=== PATIENT | female | born 1960 | race Hispanic/Latino ===

== ENCOUNTER 2018-12-25 18:25 | Inpatient (IN) | payer OTHER, SELFPAY ==
[~2018-12-25] VITALS: Ht 165.1 cm; Wt 91.2 kg
[~2018-12-25 18:25] MED LIST: ALBU6.7H IH; LEVO500T2 PO
[2018-12-25] MEDS ORDERED: METHYLPREDNISOLONE SOD SUCC 125MG/2ML VIAL ONE (19:18)
[2018-12-25] MEDS ORDERED: IPRATROPIUM/ALBUTEROL SULFATE 3 ML SOLUTION IH ONE (19:18)
[2018-12-25] MEDS ORDERED: ASPIRIN 81MG TAB.CHEW ONE (19:18)
[2018-12-25] MEDS ORDERED: SODIUM CHLORIDE 0.9% 1000ML 1,000 ML IV ONE (19:19)
[2018-12-25 19:42] LABS: BASOPHILS % (AUTO) 1.1 % (0.0-5.0); EOSINOPHILS % (AUTO) 10.8 % (0.0-8.0); HEMATOCRIT 46.4 % (36-48); MEAN CORPUSCULAR HEMOGLOBIN 31.3 pg (27.0-33.0); MEAN CORPUSCULAR HGB CONC 34.9 g/dL (32.0-36.0); MEAN CORPUSCULAR VOLUME 89.7 fL (79-99); MONOCYTES % (AUTO) 8.1 % (3.0-13.0); PLATELET COUNT (AUTO) 220 K/uL (130-400); RED BLOOD CELL COUNT(AUTO) 5.18 MIL/uL (4.00-5.50); RED CELL DISTRIBUTION WIDTH 13.4 % (11.0-15.5); WHITE BLOOD COUNT (AUTO) 10.6 K/uL (4.8-10.8)
[2018-12-25 19:58] LABS: BILIRUBIN,TOTAL 0.5 mg/dL (0.2-1.0); TOTAL PROTEIN, SERUM 7.3 g/dL (6.0-8.3)
[2018-12-25 20:15] LABS: B-TYPE NATRIURETIC PEPTIDE 8 pg/mL (0-100)
[2018-12-25] MEDS ORDERED: ALBUTEROL SULFATE 0.083% 2.5 MG/3 ML INH IH ONE ×2 (20:38→20:50)
[2018-12-25 20:53] LABS: APPEARANCE,URINE CLEAR (CLEAR); BILIRUBIN,URINE NEGATIVE (NEGATIVE); COLOR,URINE YELLOW (YELLOW); GLUCOSE, URINE (UA) >=1000 mg/dL (NEGATIVE); KETONES,URINE NEGATIVE (NEGATIVE); LEUKOCYTE ESTERASE ,URINE TRACE (NEGATIVE); NITRATE,URINE NEGATIVE (NEGATIVE); OCCULT BLOOD,URINE NEGATIVE (NEGATIVE); PROTEIN,URINE NEGATIVE (NEGATIVE); UROBILINOGEN,URINE 0.2 mg/dL (0.2-1.0)
[2018-12-25] MEDS ORDERED: POTASSIUM BICARB/CIT AC 25 MEQ TABLET.EFF ONE (20:59)
[2018-12-25 21:08] LABS: BACTERIA,URINE Rare /HPF (None Seen); RBC,URINE 0-1 /HPF (0-1); SQUAMOUS EPITHELIAL CELL,UR Few /HPF (0-2)
[2018-12-25 21:09] LABS: YEAST,URINE BUDDING Rare /HPF (None Seen)
[2018-12-25] MEDS ORDERED: DEXTROSE 50%-WATER 50 ML DISP.SYRIN IV PRN (23:00)
[2018-12-25] MEDS ORDERED: GLUCAGON 1MG KIT 1 MG ML IM PRN (23:00)
[2018-12-25] MEDS ORDERED: IPRATROPIUM/ALBUTEROL SULFATE 3 ML SOLUTION IH PRN (23:00)
[2018-12-26] MEDS: IPRATROPIUM/ALBUTEROL SULFATE 3 ML SOLUTION IH SCH ×5 (00:02→23:20)
[2018-12-26] MEDS: AZITHROMYCIN 500MG+NS 250ML 250 ML IV SCH ×2 (00:16→22:12)
[2018-12-26] MEDS: CEFTRIAXONE SODIUM 1 GM IVP SCH ×2 (00:16→22:12)
[2018-12-26 00:43] VITALS: BP 139/72
[2018-12-26 04:00] VITALS: BP 139/77
[2018-12-26 04:24] LABS: BASOPHILS % (AUTO) 0.4 % (0.0-5.0); EOSINOPHILS % (AUTO) 0.2 % (0.0-8.0); HEMATOCRIT 43.9 % (36-48); LYMPHOCYTES % (AUTO) 5.6 % (21.0-51.0); MEAN CORPUSCULAR HEMOGLOBIN 30.4 pg (27.0-33.0); MEAN CORPUSCULAR HGB CONC 33.9 g/dL (32.0-36.0); MEAN CORPUSCULAR VOLUME 89.8 fL (79-99); MONOCYTES % (AUTO) 0.7 % (3.0-13.0); NEUTROPHILS % (AUTO) 93.1 % (40.0-77.0); PLATELET COUNT (AUTO) 200 K/uL (130-400); RED BLOOD CELL COUNT(AUTO) 4.89 MIL/uL (4.00-5.50); RED CELL DISTRIBUTION WIDTH 13.4 % (11.0-15.5); WHITE BLOOD COUNT (AUTO) 9.1 K/uL (4.8-10.8)
[2018-12-26 04:40] LABS: ALBUMIN 3.7 g/dL (3.5-5.0); BILIRUBIN,TOTAL 0.5 mg/dL (0.2-1.0); CREATININE 0.8 mg/dL (0.5-1.5); POTASSIUM 4.6 mmol/L (3.5-5.1); TOTAL PROTEIN, SERUM 6.9 g/dL (6.0-8.3)
[2018-12-26] MEDS: METHYLPREDNISOLONE SOD SUCC 125MG/2ML VIAL IVP SCH ×3 (06:22→22:12)
[2018-12-26] MEDS: INSULIN R PO SS1 SQ SCH ×4 (06:23→21:33)
[2018-12-26 07:00] VITALS: BP 145/85
[2018-12-26] MEDS: ENOXAPARIN SODIUM 40 MG/0.4 ML SYRINGE SQ SCH (10:35)
[2018-12-26] MEDS: INSULIN GLARGINE 100 UNITS/ML 10 ML VIAL SQ SCH (10:40)
[2018-12-26 11:00] VITALS: BP 131/74
--- NOTE | 2018-12-26 12:38 | NUR ---
cm note met with patient and state resides at home with spouse, independent with adls and self care. [facility] sees dr muñoz private pay, and also gets her meds at [facility] or in [place]. [facility] dc plan is back to home. discussed with pt possibility of obtaining [employer] insurance. she states she has tried and they are quoting her about 175$per month. but at this point she feels like she should get the insurance even though it is a little high amount for her. also provided pt with list of heb meds on $4 program. also encouranged use of coupons for discounts on pump/inhalers. discussed low income clinics in the area, and provided information regarding resources. pt also has spoken to vesta for possible assist with mani coverage of hospital cost. states she will follow-up with vesta. call made to dr muñoz and updated on above. Addendum: 12/26/18 at 1244 by CRISSY CARBALLO CM Amended: Links added.
[2018-12-26 16:00] VITALS: BP 142/82
[2018-12-26 20:00] VITALS: BP 149/81
[2018-12-27 00:40] VITALS: BP 130/74
[2018-12-27] MEDS ORDERED: PRED20TA3 PO (02:45)
[2018-12-27] MEDS ORDERED: ATOR40TA71 PO (02:45)
[2018-12-27] MEDS ORDERED: INSU300I SQ (02:45)
[2018-12-27] MEDS ORDERED: CETI10TA57 PO (02:45)
[2018-12-27] MEDS ORDERED: MONT10TA24 PO (02:45)
[2018-12-27] MEDS ORDERED: GLIM4TAB3 PO (02:45)
[2018-12-27 04:00] VITALS: BP 139/73
[2018-12-27] MEDS: INSULIN R PO SS1 SQ SCH ×4 (06:42→20:57)
[2018-12-27] MEDS: INSULIN GLARGINE 100 UNITS/ML 10 ML VIAL SQ SCH (06:43)
[2018-12-27] MEDS: METHYLPREDNISOLONE SOD SUCC 125MG/2ML VIAL IVP SCH ×4 (07:00→23:17)
[2018-12-27 07:30] VITALS: BP 124/72
[2018-12-27] MEDS: IPRATROPIUM/ALBUTEROL SULFATE 3 ML SOLUTION IH SCH ×4 (07:35→23:35)
[2018-12-27] MEDS: PSEUDOEPHEDRINE HCL 30 MG TAB PO SCH ×3 (10:43→20:49)
[2018-12-27] MEDS: ENOXAPARIN SODIUM 40 MG/0.4 ML SYRINGE SQ SCH (10:49)
[2018-12-27 11:03] VITALS: BP 128/75
[2018-12-27 16:27] VITALS: BP 136/85
[2018-12-27 19:59] VITALS: BP 135/77
[2018-12-27] MEDS: AZITHROMYCIN 500MG+NS 250ML 250 ML IV SCH (20:49)
[2018-12-27] MEDS: CEFTRIAXONE SODIUM 1 GM IVP SCH (23:17)
[2018-12-28] VITALS (7 sets, daily range): BP systolic 113–143; BP diastolic 63–85
[2018-12-28] MEDS: IPRATROPIUM/ALBUTEROL SULFATE 3 ML SOLUTION IH SCH ×4 (06:29→23:11)
--- NOTE | 2018-12-28 07:00 | NUR ---
MD ROUNDS DR. MIMS CAME TO SEE PATIENT. ASSESSED HER. PATIENT STATED SHE FEELS IMPROVED BUT WITH HEADACHE. HE SAID HE WILL KEEP ONE MORE DAY AND GAVE ORDERS TO CHANGE SOLUMEDROL TO 80MG IV BID. PLAN TO DISCHARGE TOMORROW.
[2018-12-28] MEDS: METHYLPREDNISOLONE SOD SUCC 125MG/2ML VIAL IVP SCH ×3 (07:01→22:24)
[2018-12-28] MEDS: INSULIN R PO SS1 SQ SCH ×4 (07:06→22:35)
[2018-12-28] MEDS: INSULIN GLARGINE 100 UNITS/ML 10 ML VIAL SQ SCH (07:07)
--- NOTE | 2018-12-28 07:10 | NUR ---
NOTE PATIENT REPORTS HAVING HEADACHE. NO PAIN MEDICATION NOTED UPON REVIEW OF EMAR. TRIED CALLING DR. MIMS TO ASK FOR PAIN MEDICATION ORDERS, BUT WAS UNABLE TO SPEAK WITH HIM. WILL TRY AGAIN LATER.
[2018-12-28] MEDS: ENOXAPARIN SODIUM 40 MG/0.4 ML SYRINGE SQ SCH (10:37)
[2018-12-28] MEDS: PSEUDOEPHEDRINE HCL 30 MG TAB PO SCH ×3 (10:37→22:24)
[2018-12-28] MEDS: AZITHROMYCIN 500MG+NS 250ML 250 ML IV SCH (22:23)
[2018-12-28] MEDS: CEFTRIAXONE SODIUM 1 GM IVP SCH (22:24)
[2018-12-29 04:00] VITALS: BP 130/70
[2018-12-29] MEDS: IPRATROPIUM/ALBUTEROL SULFATE 3 ML SOLUTION IH SCH ×2 (06:01→11:02)
[2018-12-29] MEDS: INSULIN R PO SS1 SQ SCH ×2 (06:04→11:30)
[2018-12-29] MEDS: INSULIN GLARGINE 100 UNITS/ML 10 ML VIAL SQ SCH (06:43)
--- NOTE | 2018-12-29 07:06 | NUR ---
ROUNDS DR. MIMS HERE TO SEE PATIENT. PATIENT DID INFORMED HIM OF RIGHT EAR DISCOMFORT THAT HAS BEEN CONTINUING ON AND OFF SINCE BEFORE SHE GOT ADMITTERED SHE SAYS. BUT OVER ALL FEELS BETTER TODAY. RECEIVED ORDERS FOR PATIENT TO BE DISCHARGED HOME TODAY. FOLLOW UP AT NEXT WEEK.
[2018-12-29 07:30] VITALS: BP 136/68
[2018-12-29] MEDS: ENOXAPARIN SODIUM 40 MG/0.4 ML SYRINGE SQ SCH (10:20)
[2018-12-29] MEDS: PSEUDOEPHEDRINE HCL 30 MG TAB PO SCH (10:20)
[2018-12-29] MEDS: METHYLPREDNISOLONE SOD SUCC 125MG/2ML VIAL IVP SCH (10:21)
[2018-12-29 11:00] VITALS: BP 137/83
== END 2018-12-29 13:37 | disposition home or self-care (01) | DRG 203 ==
LOC: EDH 18:25 → EDHIP 18:26 → OBSVTOIN 18:26 → EDHIP 22:30 → UNDOADMOB 22:30 → 4CH 12-26 00:16
PROVIDERS: ADMIT Internal Medicine; ATTEND Internal Medicine
DX: J45.901 Unspecified asthma with (acute) exacerbation (principal); I10 Essential (primary) hypertension; E78.00 Pure hypercholesterolemia, unspecified; E11.9 Type 2 diabetes mellitus without complications
CPT/HCPCS: 36415; 71045; 80053; 81001; 82550; 82948; 83880; 84484; 85025; 93005; 94640; 94664; 99291; G0378; J0456; J0696; J1650; J1815; J2930; J7030

== ENCOUNTER 2024-08-12 17:36 | Inpatient (IN) | payer SELFPAY ==
[~2024-08-12] VITALS: Ht 162.6 cm; Wt 66.8 kg
[~2024-08-12 17:36] MED LIST changes: -ALBU6.7H IH; +ATOR40TA71 PO; +CETI10TA57 PO; +GLIM4TAB36 PO; +INSU300I SQ; -LEVO500T2 PO; +MONT-39 PO; +PRED20TA3 PO
[2024-08-12 18:10] LABS: BASOPHILS # (AUTO) 0.05 K/uL (0.00-0.20); BASOPHILS % (AUTO) 0.3 % (0.0-5.0); EOSINOPHILS # (AUTO) 0.04 K/uL (0.00-0.70); EOSINOPHILS % (AUTO) 0.2 % (0.0-8.0); HEMATOCRIT 37.3 % (36-48); IMMATURE GRANULOCYTE ABSOLUTE 0.12 K/uL (0-1); LYMPHOCYTES # (AUTO) 0.6 K/uL (1.0-4.8); MEAN CORPUSCULAR HEMOGLOBIN 30.3 pg (27.0-33.0); MEAN CORPUSCULAR HGB CONC 35.4 g/dL (32.0-36.0); MEAN CORPUSCULAR VOLUME 85.6 fL (79-99); MONOCYTES # (AUTO) 1.3 K/uL (0.1-1.0); MONOCYTES % (AUTO) 6.9 % (3.0-13.0); NEUTROPHILS # (AUTO) 17.2 K/uL (1.8-7.7); PLATELET COUNT (AUTO) 156 K/uL (130-400); RED BLOOD CELL COUNT(AUTO) 4.36 MIL/uL (4.00-5.50); RED CELL DISTRIBUTION WIDTH 12.5 % (11.0-15.5); WHITE BLOOD COUNT (AUTO) 19.4 K/uL (4.8-10.8)
[2024-08-12] MEDS: acetaMINOPHEN 500 MG TABLET PO ONE (18:10)
[2024-08-12 18:34] LABS: BAND NEUTROPHILS % (MANUAL) 12 % (0-2); LYMPHOCYTES % (MANUAL) 1 % (22-44); MAN.DIFF COMMENT-IMPRESSION MANUAL DIFFERENTIAL; METAMYELOCYTES % 1 % (0-0); MONOCYTES % (MANUAL) 8 % (2-9); POTASSIUM 3.2 mmol/L (3.5-5.1); SEGMENTED NEUTROPHILS % 78 % (40-70); TOTAL CELLS COUNTED 100
[2024-08-12 18:34] LABS: SARS-CoV-2, RNA, NAAT NEGATIVE SARS CoV-2 (NEGATIVE)
[2024-08-12 18:35] LABS: PLATELET MORPHOLOGY COMMENT ADEQUATE; WBC MORPHOLOGY IMMATURE GRAN 1+
[2024-08-12 18:39] LABS: INFLUENZA TYPE A Negative For Type A (NEGATIVE); INFLUENZA TYPE B Negative For Type B (NEGATIVE)
[2024-08-12 18:41] LABS: B-TYPE NATRIURETIC PEPTIDE 52 pg/mL (0-100)
[2024-08-12 18:43] LABS: MAGNESIUM 1.7 mg/dL (1.80-2.40)
[2024-08-12] MEDS: cefTRIAXone 1G VIAL IVPB ONE (18:43)
--- NOTE | 2024-08-12 20:40 | EKG ---
[facility] Test Date: 2024-08-12 Test Time: 17:52:30 Pat Name: XOCHITL CORCORAN Department: [facility] Room: 430 Gender: F Tonsorial Artist: [id number] : 1960 Requested By: TRACI TREJO Order Number: [id number] Reading MD: Carrington Walden Measurements Intervals [place] Rate: 115 P: 71 DC: 128 QRS: 50 QRSD: 87 T: -3 QT: 297 QTc: 410 Interpretive Statements Sinus tachycardia Ventricular premature complex Compared to ECG 12/25/2018 18:53:51 Ventricular premature complex(es) now present Sinus rhythm no longer present ST (T wave) deviation no longer present Electronically Signed On 08-13-2024 12:11:45 GASOLINE PUMP MECHANIC by Carrington Walden Please click the below link to view image of tracing.
[2024-08-12] MEDS: AZITHROMYCIN 500MG+NS 250ML 250 ML IVPB SCH (20:50)
--- NOTE | 2024-08-12 20:55 | ERN ---
General Chief Complaint: Chest Pain Stated Complaint: CHEST PAIN Time Seen by MD: 17:39 Time Seen by Midlevel: 17:39 Source: patient History of Present Illness Initial Comments Patient is a 64-year-old female with a past medical history of asthma, hyperlipidemia, hypertension, and type 2 diabetes presenting to the emergency department with cough, congestion, and right-sided chest pain. The patient was diagnosed with influenza three days ago and started on Tamiflu however over the last couple of days she has only worsened. She reports an increase in shortness for breath now. Allergies: Coded Allergies: No Known Drug Allergies (Verified Allergy, Unknown, 01/15/16) Home Meds Reported Medications Losartan Potassium (Losartan Potassium) 50 Mg Tablet, 1 TAB PO DAILY for 30 Days, #30 TAB 0 Refills 08/13/24 Pantoprazole Sodium (Pantoprazole Sodium) 40 Mg Tablet.dr, 40 MG PO DAILY, TAB 08/13/24 Montelukast Sodium (Montelukast Sodium) 10 Mg Tablet, 1 TAB PO DAILY for 30 Days, #30 TAB 0 Refills 08/13/24 Metformin HCl (Metformin HCl ER) 500 Mg Tab.er.24h, 1 TAB PO DAILY for 30 Days, #30 TAB 0 Refills 08/13/24 Atorvastatin Calcium (Atorvastatin Calcium) 20 Mg Tablet, 1 TAB PO DAILY for 30 Days, #30 TAB 0 Refills 08/13/24 Discontinued Reported Medications Insulin Glargine,Hum.rec.anlog (Luh Jon) 300 Unit/1 Ml Insuln.pen, 15 UNIT SQ DAILY, SYRINGE PT INJCTS BETWEEN 15 OR 30 UNITS DEPENDING ON HER BLOOD SUGAR CHECK 12/27/18 Atorvastatin Calcium (Atorvastatin Calcium) 40 Mg Tablet, 40 MG PO DAILY, TAB 12/27/18 Cetirizine HCl (Cetirizine HCl) 10 Mg Tablet, 10 MG PO HS, TAB 12/27/18 Montelukast Sodium (Montelukast Sodium) 10 Mg Tablet, 10 MG PO DAILY, TAB 12/27/18 Prednisone (Prednisone) 20 Mg Tablet, 20 MG PO DAILY, TAB 12/27/18 Glimepiride (Glimepiride) 4 Mg Tablet, 4 MG PO BID, TAB 12/27/18 Past Medical History Past Medical History: Asthma, Diabetes-Type II, High Cholesterol, Hypertension Past Surgical History: Hysterectomy ROS Dictation CONSTITUTIONAL: Negative except for HPI HEAD/FACE: Negative except for HPI EENT: Negative except for HPI RESPIRATORY: Negative except for HPI GASTROINTESTINAL/ABDOMINAL: Negative except for HPI GENITOURINARY: Negative except for HPI MUSCULOSKELETAL: Negative except for HPI INTEGUMENTARY: Negative except for HPI NEUROLOGICAL/PSYCH: Negative except for HPI HEMATOLOGIC/LYMPHATIC: Negative except for HPI All Systems Negative, Except as noted above. 13 point review of systems assessed and all negative except for above. Physical Exam Physical Exam Dictation Vital Signs reviewed General Appearance: Alert, oriented x 3, no acute distress, febrile Head and Face: non-traumatic. Eyes: PERRL, pink conjunctivas, eyelid no trauma, anterior chamber with arcus senilis. Ears: Pinnas intact and no signs of trauma or erythema ear canals clear and no discharge TM no erythema Nose: No discharge, no bleeding. Oropharynx: Mouth normal, tongue pink, pharynx clear,no erythema, tonsils no exudates, no abscesses noted, mucous membrane moist Neck: Supple, non-tender, no thyromegaly, no masses, no JVD, no bruits Breast:Deferred Chest:No tenderness, no crepitus, no paradoxical movement, no retractions Lungs: Symmetric breath sounds bilaterally, rhonchi to the right upper lobe, Heart: tachycardic regular rhythm, no murmur, no gallops Vascular: no peripheral edema, Abdomen: Soft, positive bowel sounds, nondistended, no guarding, nontender, no rebound, no masses no hepatomegaly, no splenomegaly, no Drummond's sign, no hernias. Rectal: Deferred Genital: Deferred Neurological: Normal speech, motor function intact, sensory function intact Musculoskeletal: Neck nontender, full range of motion, back nontender, full range of motion, Extremities: nontender, full range of motion Skin: Color pink, dry, no turgor, no rash, no lacerations, no abrasions, no contusions. Lymphatic: Deferred Results Laboratory and Microbiology Lab and Micro Result Labs Reviewed?: Yes MDM MDM: Differential diagnosis: Pneumonia, pulmonary edema, pleural effusion, viral illness, sepsis Rationale: Tests considered and ordered secondary to shared decision making i nclude: Previous outside records reviewed: Old ER visits. Risk of complication and/or morbidity or mortality of patient management: None Medications-Per medication reconciliation Need for hospitalization: Patient does meet criteria for hospitalization. Need for emergency major/minor surgery: No There are no social concerns with this patient. Prescription drug management Prescriptions will include symptomatic care Patient's prior external medical records from other ER visits were reviewed by me as indicated. Prior testing and results from previous visits were reviewed. Prior tests were taken into account with medical decision making and resource utilization, independent historian/historians were used to obtain complete medical history. I independently interpreted the test that were performed, results were reviewed by me and considered findings on radiology if ordered. Medical management and examination interpretation discussions were had by me with other qualified healthcare professionals as indicated for the patient's care. ED Course [facility] [address] [place] [address] IMAGING REPORT Signed PATIENT: XOCHITL CORCORAN MR#: [id number] : 1960 SEX: F AGE: 64 LOCATION: [facility] ORDER 44 STATUS: [facility] ER REPORT#: [id number] SERVICE 43 REASON: sob ORDERING PHYSICIAN: TRACI TREJO PROCEDURE: CXR1VW - CHEST 1VW CHEST 1VW CLINICAL HISTORY: sob COMPARISON: 12/23/2018 TECHNIQUE: Single view of the chest was obtained. FINDINGS: There is a large infiltrate in the right lung. The cardiac size and mediastinum are unremarkable. The bony structures are within normal limits. IMPRESSION: Large right lung infiltrate. DICTATED BY: NATALIA ROLLINS DO DATE: 08/12/242114 ELECTRONICALLY SIGNED BY: NATALIA ROLLINS DO DATE: 08/12/242133 DX & DISP Disposition: Inpatient Decision to Admit Date: Aug 12, 2024 Departure Impression: Primary Impression: Sepsis Additional Impressions: Community acquired pneumonia, Leukocytosis Condition: Stable Referrals: [facility] S[facility] LITERATURE PROFESSOR (PCP) I have reviewed the case, and I agree with, Diagnosis and Plan I performed the substantive portion of the visit. I have reviewed and personall y made and approve the management plan that is documented in the note by myself or the DANITZA. I acknowledge for responsibility for the patient's management plan. TRACI TREJO Aug 12, 2024 20:55
[2024-08-12] MEDS ORDERED: PoTASSium chloRIDE 20MEQ/100ML 100 ML IV PRN (21:30)
[2024-08-12] MEDS ORDERED: hydrALAZine 20MG/ML VIAL IV PRN (21:30)
[2024-08-12] MEDS ORDERED: morPHINE 2 MG SYG IVP PRN (21:30)
[2024-08-12] MEDS ORDERED: ondanSETRON 4MG INJ IV PRN (21:30)
--- NOTE | 2024-08-12 21:34 | HMCIMG ---
CHEST 1VW CLINICAL HISTORY: sob COMPARISON: 12/23/2018 TECHNIQUE: Single view of the chest was obtained. FINDINGS: There is a large infiltrate in the right lung. The cardiac size and mediastinum are unremarkable. The bony structures are within normal limits. IMPRESSION: Large right lung infiltrate.
--- NOTE | 2024-08-12 21:35 | HP ---
History of Present Illness Reason for Visit: cough History of Present Illness Ms. Wellington is a 64-year-old female that was seen and examined today on 08/12/2024. Patient is a good historian and personal health. Patient states she came to the emergency department with a chief complaint of cough. Onset is chronic. Cough has been worse for about one week. Location is to lungs. Duration is on and off. Character is described as nonproductive. Symptoms are aggravated with physical activity. There was no alleviating factors. Patient states that she feels like her asthma is getting worse. Patient also reports associated chest pain. Today in the emergency department WBCs 19.4, left shift neutrophils 89.0%, potassium 3.2, magnesium 1.7, glucose 227 mg/dL, influenza screen is negative, COVID is negative, chest x-ray shows right lower lobe infiltrates although radiology report is pending. Room physician recommended patient be admitted with a diagnosis of pneumonia. Past Medical History Patient History: Patient reports no known family medical history. ADDITIONAL PAST MEDICAL HISTORY: [] Diabetes mellitius type2, hypertension, hyperlipidemia, asthma SOCIAL HISTORY: [Negative for smoking, alcohol use, drug use. Patient has poor access to health care due to lack of health insurance. Patient lives with the Rashid Wellington. Patient is typically independent of all her ADLs. Patient denies difficulty paying her bills. Patient works at a local [employer] facility.] SURGICAL HISTORY: [Hysterectomy, section x1] Review of Systems General: No Fever, No Chills, No Night Sweats, No Fatigue, No Malaise, No Appetite, No Other HEENT: No Head Aches, No Visual Changes, No Eye Pain, No Ear Pain, No Dysphasia, No Sinus Congestion, No Post Nasal Drip, No Sore Throat, No Other Pulmonary: No Dyspnea; Cough; No Pleuritic Chest Pain, No Other Cardiovascular: Chest Pain; No: Palpitations, Orthopnea, Paroxysmal Noc. Dyspnea, Edema, Lt Headedness, Other Gastrointestinal: No: Nausea, Vomiting, Abdominal Pain, Diarrhea, Constipation, Melena, Hematochezia, Other Genitourinary: No Dysuria, No Frequency, No Incontinence, No Hematuria, No Retention, No Other Musculoskeletal: No: other, neck pain, shoulder pain, arm pain, back pain, hand pain, leg pain, foot pain Skin: No Urticaria, No Rash, No Other Neurological: No: Weakness, Numbness, Incoordination, Change in speech, Confusion, Seizures, Other Allergies: Coded Allergies: No Known Drug Allergies (Verified Allergy, Unknown, 01/15/16) Scheduled Atorvastatin Calcium (Atorvastatin Calcium), 40 MG PO DAILY, (Reported) Cetirizine HCl (Cetirizine HCl), 10 MG PO HS, (Reported) Glimepiride (Glimepiride), 4 MG PO BID, (Reported) Insulin Glargine,Hum.rec.anlog (Toujeo Solostar), 15 UNIT SQ DAILY, (Reported) Montelukast Sodium (Montelukast Sodium), 10 MG PO DAILY, (Reported) Prednisone (Prednisone), 20 MG PO DAILY, (Reported) Exam Vital Signs Vital Signs Date Time Temp Pulse Resp B/P (MAP) Pulse Ox O2 Delivery O2 Flow Rate FiO2 08/12/24 19:49 99.0 99 22 113/49 94 Room Air* 0 21 General Appearance: Alert, Oriented X3, Cooperative, mild distress HEENT: Atraumatic, EOMI Respiratory: Other (Rhonchi to right lower lobe) Cardiovascular: Normal S1, Normal S2 Abdominal: Normal bowel sounds, Soft Extremities: No edema Skin: No significant lesion Neuro: Normal speech, Strength at 5/5 X4 ext, Sensation intact, Cranial nerves 3-12 NL Psych/Mental Status: Mood NL, Thoughts/Content NL Assessment/Plan ASSESSMENT: [ Pneumonia, POA Uncontrolled Diabetes mellitius type2, POA Hypokalemia, POA Hypomagnesemia, POA Leukocytosis, POA Asthma Hyperlipidemia] PLAN: [ Admit patient to medical floor as inpatient status. DuoNebs every 6 hours. Respiratory culture Empiric antibiotic therapy with doxycycline and Rocephin Supportive treatment with guaifenesin, Tylenol Supplemental oxygen to maintain O2 saturation greater 92%. Order urinalysis, follow up with the results Reviewed lactic acid, unremarkable Reviewed procalcitonin, mildly elevated 0.98 Check blood culture, follow up with the results Check hemoglobin A1c in a.m. Glucometer checks a.c. and HS 1800 ADA diet Humulin R sliding scale Replace potassium per hospital protocol Replace magnesium per hospital protocol Resuming home medications once they have been reconciled GI prophylaxis, famotidine DVT prophylaxis, Lovenox ADVANCED CARE PLANNING 1. Which of the following were discussed? Hospice Care - Yes Therapeutic options - Yes Advance Directives - Yes- patient states she does not have any advance directives in place at this time, however her has been can make decisions for her if she becomes unable. Other discussions - patient wishes to remain a full code at this time 2. Discussed with who? Patient 3. Voluntary nature of this service was explained to the patient? Yes 4. Amount of time spent - ___ 16 minutes ____ 5. Reviewed by Physician? (if this service was performed by NPP) Yes This document was generated in part using voice recognition software, occasional wrong word or sound alike substitutions may have occurred due to the inherent limitations of voice recognition software. Read the chart carefully and recognize using context, where the substitutions have occurred. Although every effort was made to edit the content, carpet inspector and typing errors may occur ATTESTATION BY PHYSICIAN I have seen and examined the patient. I reviewed the documentation, medical decision making, and treatment plan as noted by the mid-level provider above. I agree with the findings and plan of care. [facility] Aug 12, 2024 21:35
[2024-08-12 22:10] LABS: APPEARANCE,URINE CLOUDY (CLEAR); BILIRUBIN,URINE NEGATIVE (NEGATIVE); COLOR,URINE YELLOW (YELLOW); GLUCOSE, URINE (UA) 200 mg/dL (NEGATIVE); KETONES,URINE NEGATIVE (NEGATIVE); LEUKOCYTE ESTERASE ,URINE NEGATIVE Leu/uL (NEGATIVE); NITRATE,URINE NEGATIVE (NEGATIVE); OCCULT BLOOD,URINE SMALL (NEGATIVE); PH,URINE 5.5 (5.0-8.0); PROTEIN,URINE 70 mg/dL (NEGATIVE)
[2024-08-12 22:23] LABS: ADD UA MICROSCOPIC YES
[2024-08-12 22:25] LABS: MUCUS,URINE RARE LPF (None Seen); RBC,URINE 0-1 /HPF (0-1); SQUAMOUS EPITHELIAL CELL,UR RARE /HPF (0-2)
[2024-08-12] MEDS: IpraTROPium/alBUTERol SULFATE 3 ML SOLUTION IH ONE (23:16)
[2024-08-12] MEDS: IpraTROPium/alBUTERol SULFATE 3 ML SOLUTION IH SCH (23:16)
[2024-08-12] MEDS: SODIUM CHLORIDE 3% FOR INHALATION 4 ML/AMP VIAL.NEB IH ONE (23:16)
[2024-08-12 23:18] VITALS: PULSE 93; RESP 18
[2024-08-13] VITALS (12 sets, daily range): BP systolic 97–129; BP diastolic 52–76; PULSE 78–122; RESP 18–22; TEMP 98–100.1; O2SAT 93–98
[2024-08-13] MEDS: PoTASSium chloRIDE 20MEQ ER 20 MEQ ERTAB PO PRN (00:19)
[2024-08-13] MEDS: MAGNESIUM 2GM PREMIX 50ML 50 ML IV PRN (01:15)
[2024-08-13] MEDS ORDERED: MONT-39 PO (03:19)
[2024-08-13] MEDS ORDERED: METF-910 PO (03:19)
[2024-08-13] MEDS ORDERED: LOSA50TA64 PO (03:19)
[2024-08-13] MEDS ORDERED: PANT40TA54 PO (03:19)
[2024-08-13] MEDS ORDERED: ATOR20TA65 PO (03:19)
[2024-08-13] MEDS: acetaMINOPHEN 325 MG TAB PO PRN (05:33)
[2024-08-13 06:03] LABS: BASOPHILS # (AUTO) 0.03 K/uL (0.00-0.20); BASOPHILS % (AUTO) 0.2 % (0.0-5.0); EOSINOPHILS # (AUTO) 0.05 K/uL (0.00-0.70); EOSINOPHILS % (AUTO) 0.3 % (0.0-8.0); HEMATOCRIT 32.2 % (36-48); IMMATURE GRANULOCYTE ABSOLUTE 0.11 K/uL (0-1); LYMPHOCYTES # (AUTO) 0.9 K/uL (1.0-4.8); MEAN CORPUSCULAR HEMOGLOBIN 30.3 pg (27.0-33.0); MEAN CORPUSCULAR HGB CONC 35.1 g/dL (32.0-36.0); MEAN CORPUSCULAR VOLUME 86.3 fL (79-99); MONOCYTES # (AUTO) 1.7 K/uL (0.1-1.0); MONOCYTES % (AUTO) 9.3 % (3.0-13.0); NEUTROPHILS # (AUTO) 15.1 K/uL (1.8-7.7); NEUTROPHILS % (AUTO) 84.6 % (40.0-77.0); PLATELET COUNT (AUTO) 159 K/uL (130-400); RED BLOOD CELL COUNT(AUTO) 3.73 MIL/uL (4.00-5.50); RED CELL DISTRIBUTION WIDTH 12.7 % (11.0-15.5); WHITE BLOOD COUNT (AUTO) 17.8 K/uL (4.8-10.8)
[2024-08-13 06:22] LABS: CREATININE 0.7 mg/dL (0.5-1.0); MAGNESIUM 2.3 mg/dL (1.80-2.40); PHOSPHORUS 2.1 mg/dL (2.5-4.9); POTASSIUM 3.3 mmol/L (3.5-5.1)
[2024-08-13 06:25] LABS: HEMOGLOBIN A1C 6.1 % (4.0-6.0)
[2024-08-13] MEDS: INSULIN humuLIN R 100 UNIT/ML 3ML SQ SCH (06:29)
[2024-08-13] MEDS: SODIUM CHLORIDE 3% FOR INHALATION 4 ML/AMP VIAL.NEB IH ONE ×2 (07:01→11:09)
[2024-08-13] MEDS: ENOXAPARIN SODIUM 40 MG/0.4 ML SYRINGE SQ SCH (10:51)
[2024-08-13] MEDS: FAMOTIDINE 20MG TAB PO SCH (10:51)
[2024-08-13] MEDS: DOXYCYCLINE 100MG+NS 250ML 250 ML IV SCH (10:51)
[2024-08-13] MEDS: PoTASSium chl 10% ELIXIR 20MEQ 20 MEQ/15 ML UDCUP PO PRN (10:53)
--- NOTE | 2024-08-13 11:09 | PN ---
[facility] PROGRESS NOTE Date of Service: Aug 13, 2024 Time of Service: 11:00 SUBJECTIVE: This is a 64-year-old female, presented to the emergency room with a chief complaint of cough productive of brownish phlegm with the associated shortness of breath. Chest x-ray showed large right lung infiltrate. 08/13 patient is seen and examined at bedside, case discussed with the RN, no acute events overnight. During my visit the patient comfortable in bed, alert oriented x3, following commands, admits cough productive brownish phlegm, right- sided pleuritic chest pain. BP 97/53, spiked fever last night, she is saturating 96% on 2 L via nasal cannula. WBC remains elevated at 17.8. Potassium 3.3. Hemoglobin A1c 6.1. Procalcitonin mildly elevated 0.98. Appearance of the UA cloudy. Small occult blood. Serology to include influenza type a and B negative. SARS antigen negative. Chest x-ray shows large right lung infiltrate. REVIEW OF SYSTEMS CONSTITUTIONAL: Denies fevers, chills, or night sweats. No unintentional weight loss reported. NEUROLOGICAL: Denies headache, amaurosis fugax, motor weakness, sensory deficit, vertigo/spinning sensation, gait abnormalities, or tremors. ENT: No hearing loss, otalgia, otorrhea, rhinitis, rhinorrhea, hoarseness, or sore throat. CARDIOVASCULAR: Denies any exertional angina, dyspnea on exertion, orthopnea, paroxysmal nocturnal dyspnea, palpitations, life-threatening arrhythmias, claudication. PULMONARY: Denies any shortness of breath, cough, phlegm/sputum, hemoptysis, pleuritic chest pain. SLEEP: Denies morning headaches, daytime somnolence or napping. Denies difficul ty falling asleep, staying asleep, waking from sleep. Denies knowledge of snoring. GASTROINTESTINAL: Denies any type of dysphagia to either liquids or solids. Denies nausea, vomiting, pyrosis, early satiety, abdominal pain, diarrhea, constipation, or changes in stool consistency or caliber. Denies coffee-ground emesis, hematemesis, hematochezia, or melanotic stools. GENITOURINARY: Denies frequency, urgency, nocturia, hematuria or incontinence (Storage/Irritative symptoms.) Low urinary stream, straining to void, urinary intermittency or hesitancy, splitting of the voiding stream, terminal dribbling. ENDOCRINOLOGIC: Denies polyuria, polydipsia, polyphagia or heat/cold intole rances. HEMATOLOGIC: Denies thrombophilia/previous clots, or coagulopathy/bleeding disorders. ONCOLOGIC: Denies personal history of malignancy. DERMATOLOGIC: Denies rashes or pruritus. PSYCHIATRIC: Denies any suicidal or homicidal ideation. Denies hallucinations. PHYSICAL EXAM GENERAL APPEARANCE: The patient is awake, alert, and oriented, in no acute cardiopulmonary distress. NEUROLOGICAL: Cranial nerves II-XII grossly intact. Motor is 5/5 in bilateral upper and lower extremities proximal to distal. No sensory deficits. HEENT: Face is symmetric. Pupils are equal and reactive. Extraocular movements are intact. NECK: Supple. No JVD. No thyromegaly. No submental, submandibular, pre- /postauricular, occipital or supraclavicular lymphadenopathy. CHEST: Normal chest expansion. No Telemetry. LUNGS: Absence of any rales, rhonchi or any wheezing. CARDIOVASCULAR: Regular. S1 and S2 normal. No appreciable rubs, murmurs or gallops. ABDOMEN: Soft, nontender, and nondistended. There is no rebound, voluntary guarding, or rigidity. : Deferred. No Rincon. EXTREMITIES: Non-edematous and not cyanotic. No clubbing. Good capillary refill. SKIN: No skin breakdown. Vital Signs (last 8hr) Date Time Temp Pulse Resp B/P (MAP) Pulse Ox O2 Delivery O2 Flow Rate FiO2 08/13/24 08:00 98.2 90 20 97/53 96 Nasal Cannula 2.0 08/13/24 07:02 90 18 08/13/24 04:10 93 Nasal Cannula* 2 28 08/13/24 04:00 99.9 99 18 105/52 99 Nasal Cannula LABS: Laboratory: Test 08/13/24 05:56 08/13/24 05:27 08/12/24 21:54 08/12/24 18:15 Range/Units White Blood Count 17.8 H 4.8-10.8 K/uL Red Blood Count 3.73 L 4.00-5.50 MIL/uL Hemoglobin 11.3 L 12.0-16.0 g/dL Hematocrit 32.2 L 36-48 % Mean Corpuscular Volume 86.3 79-99 fL Mean Corpuscular Hemoglobin 30.3 27.0-33.0 pg Mean Corpuscular Hemoglobin Concent 35.1 32.0-36.0 g/dL Red Cell Distribution Width 12.7 11.0-15.5 % Platelet Count 159 130-400 K/uL Mean Platelet Volume 10.0 7.5-10.5 fL Immature Granulocyte % (Auto) 0.6 0-1 % Neutrophils (%) (Auto) 84.6 H 40.0-77.0 % Lymphocytes (%) (Auto) 5.0 L 21.0-51.0 % Monocytes (%) (Auto) 9.3 3.0-13.0 % Eosinophils (%) (Auto) 0.3 0.0-8.0 % Basophils (%) (Auto) 0.2 0.0-5.0 % Neutrophils # (Auto) 15.1 H 1.8-7.7 K/uL Lymphocytes # (Auto) 0.9 L 1.0-4.8 K/uL Monocytes # (Auto) 1.7 H 0.1-1.0 K/uL Eosinophils # (Auto) 0.05 0.00-0.70 K/uL Basophils # (Auto) 0.03 0.00-0.20 K/uL Absolute Immature Granulocyte (auto 0.11 0-1 K/uL Nucleated Red Blood Cells 0.0 0.0-0.19 % Sodium Level 138 136-145 mmol/L Potassium Level 3.3 L 3.5-5.1 mmol/L Chloride Level 102 101-111 mmol/L Carbon Dioxide Level 26 21-32 mmol/L Blood Urea Nitrogen 11 7-18 mg/dL Creatinine 0.7 0.5-1.0 mg/dL Glomerular Filtration Rate Calc 97 >90 mL/min Random Glucose 157 H 70-105 mg/dL Hemoglobin A1c 6.1 H 4.0-6.0 % Estimated Average Glucose (eAG) 128 H 70-126 mg/dL Total Calcium 8.1 L 8.5-10.1 mg/dL Phosphorus Level 2.1 L 2.5-4.9 mg/dL Magnesium Level 2.30 1.80-2.40 mg/dL Whole Blood Glucose 164 H 70-110 MG/DL Urine Color YELLOW YELLOW Urine Appearance CLOUDY H CLEAR Urine pH 5.5 5.0-8.0 Urine Specific [place]vert 1.019 1.001-1.031 Urine Protein 70 H NEGATIVE mg/dL Urine Glucose (UA) 200 H NEGATIVE mg/dL Urine Ketones NEGATIVE NEGATIVE mg/dL Urine Occult Blood SMALL H NEGATIVE Urine Nitrate NEGATIVE NEGATIVE Urine Bilirubin NEGATIVE NEGATIVE mg/dL Urine Urobilinogen 2.0 H 0.2-1.0 mg/dL Urine Leukocyte Esterase NEGATIVE NEGATIVE Blanka/uL Urine RBC 0-1 0-1 /HPF Urine WBC 2-5 H 0-1 /HPF Urine Squamous Epithelial Cells RARE 0-2 /HPF Urine Bacteria None None Seen /HPF Influenza Type A Antigen Negative For Type A NEGATIVE Influenza Type B Antigen Negative For Type B NEGATIVE SARS-CoV-2, RNA, NAAT NEGATIVE SARS CoV-2 NEGATIVE Test 08/12/24 18:03 Range/Units Segmented Neutrophils % 78 H 40-70 % Band Neutrophils % 12 H 0-2 % Lymphocytes % (Manual) 1 L 22-44 % Monocytes % (Manual) 8 2-9 % Metamyelocytes % 1 H 0-0 % Differential Comment MANUAL DIFFERENTIAL White Cell Morphology Comment IMMATURE GRAN 1+ Platelet Morphology Comment ADEQUATE Red Blood Cell Morphology See comments Lactic Acid Level 1.5 0.8-2.5 mmol/L Total Creatine Kinase 79 # 21-232 U/L Troponin I High Sensitivity 8 4-50 ng/L B-Type Natriuretic Peptide 52 0-100 pg/mL Procalcitonin 0.98 H 0.05-0.5 ng/mL Current Medications Medications (Trade) Dose Ordered Sig/Moe Route PRN Reason Start Time Stop Time Status Last Admin Dose Admin Acetaminophen (TYLenol 325MG TAB) 650 mg Q6H PRN PO TEMPERATURE GREATER THAN 101.5 08/12/24 21:30 09/11/24 21:29 08/13/24 05:33 650 MG Albuterol (DUOneb) 1 UDVIAL [id number] IH 08/13/24 00:00 09/12/24 00:00 08/13/24 07:01 1 UDVIAL Azithromycin 250 ml @ 250 mls/hr Q24H IVPB 08/12/24 20:00 08/12/24 21:46 DC 08/12/24 20:50 250 MLS/HR Ceftriaxone Sodium (ROCEphine 1G INJ) 1 gm Q24H IVPB 08/13/24 18:30 08/23/24 18:29 Doxycycline Hyclate 250 ml @ 125 mls/hr Q12H IV 08/13/24 08:00 08/23/24 07:59 08/13/24 10:51 125 MLS/HR Enoxaparin Sodium (Lovenox) 40 mg DAILY SQ 08/13/24 09:00 09/12/24 08:59 08/13/24 10:51 40 MG Famotidine (Pepcid 20mg Tab) 20 mg DAILY PO 08/13/24 09:00 09/12/24 08:59 08/13/24 10:51 20 MG Guaifenesin (RobiTUSSin SUGAR-FREE 100 MG/ 5 ML UDCUP) 400 mg Q4H PRN PO cough 08/12/24 21:30 09/11/24 21:29 Hydralazine HCl (APRESOLine 20MG INJ) 10 mg Q6H PRN IV For:SBP above 160;DBP above 90 08/12/24 21:30 09/11/24 21:29 Insulin Human Regular (humuLIN R 100 UNIT/ML 3ML) INSULIN SLIDING SCAL... ACHS SQ 08/13/24 07:30 09/12/24 07:29 Magnesium Sulfate 50 ml @ 0 mls/hr PROTOCOL PRN IV H 08/12/24 21:30 09/11/24 21:29 08/13/24 01:15 25 MLS/HR Morphine Sulfate (morPHINE 2MG SYG) 2 mg Q4H PRN IVP SEVERE PAIN (7-10) 08/12/24 21:30 08/19/24 21:29 Ondansetron HCl (zoFRAN 4MG INJ) 4 mg Q6H PRN IV NAUSEA/VOMITING 08/12/24 21:30 09/11/24 21:29 Potassium Chloride 100 ml @ 100 mls/hr AD PRN IV POTASSIUM PROTOCOL 08/12/24 21:30 09/11/24 21:29 Potassium Chloride (K-Dur/Klor-Con 20meq) 20 meq AD PRN PO POTASSIUM PROTOCOL 08/12/24 21:30 09/11/24 21:29 08/13/24 06:42 20 MEQ Potassium Chloride (KCl 10% Elixir 20meq/15ml) 20 meq AD PRN PO POTASSIUM PROTOCOL 08/12/24 21:30 09/11/24 21:29 08/13/24 10:53 20 MEQ DIAGNOSTICS / RADIOLOGY: [ ] CHEST 1VW CLINICAL HISTORY: sob COMPARISON: 12/23/2018 TECHNIQUE: Single view of the chest was obtained. FINDINGS: There is a large infiltrate in the right lung. The cardiac size and mediastinum are unremarkable. The bony structures are within normal limits. IMPRESSION: Large right lung infiltrate. ASSESSMENT: Pneumonia, POA Uncontrolled Diabetes mellitius type2, POA Hypokalemia, POA Hypomagnesemia, POA Leukocytosis, POA Asthma Hyperlipidemia PLAN: Patient remains admitted to the medical floor Continue the patient on supplemental oxygen via nasal cannula at 2 L to keep O2 sat greater than 92%. Chest x-ray reviewed, large right lung infiltrate. We will do CT chest with IV contrast for further evaluation, we will request Pulmonary consultation. DuoNeb p.r.n. per RT Continue Rocephin IV. Add doxycycline 100 mg IV q.12 hours. Follow rapid strep A screen, respiratory culture. We will order Streptococcus pneumoniae and Legionella pneumoniae antigen. Patient also with a anemia, we will order anemia workup to include iron level, stool occult blood. Follow CBC transfuse as needed We will give potassium chloride 40 mEq p.o. x1. Patient with a hemoglobin A1c 6.1, add insulin sliding scale Echocardiogram to evaluate ejection fraction Review and reconcile home meds NEURO: Minimize central acting medications as possible. Fall Precautions. Well lighted room through the day and minimize interruptions through the night to prevent acute delirium. PULMONARY: Supplemental 02 as needed BiPAP as necessary, for respiratory distress Titrate Fio2 to keep Spo2 > or = 90% DuoNebs and CPT as needed IS hourly while awake for pulmonary hygiene prn Out of bed to chair as tolerated Maintain aspiration precautions at all times CARDIOVASCULAR: Follow hemodynamics. Vital signs per facility protocol GI & NUTRITION: Continue nutritional support Aspirations precautions Prokinetic agents and laxatives as needed KIDNEYS & ELECTROLYTES: Strict monitoring of intake and output Daily weights Avoid nephrotoxic agents Monitor electrolytes and replace as needed Goal urine output of 30mL/hr or 0.5mL/kg/hr Medications to be dosed according to renal function. Avoid contrast if possible ENDOCRINE: Maintain blood glucose between 100-180 at all times. Insulin sliding scale for blood glucose management Hypoglycemia and hyperglycemia protocol in place INFECTIOUS DISEASE: Trend temperature, WBC and procalcitonin level Follow cultures, deescalate antibiotics as soon as possible. Panculture if new onset fever HEMATOLOGY & COAGULATION: Monitor H&H. Keep Hgb > 7 Transfuse 1 unit of PRBC for Hgb < 7 Transfuse 1 pack of platelets of platelets < 20, 000 Watch for any signs and symptoms of bleeding SKIN: Pressure ulcer prevention per facility protocol Specialty mattress as needed ORTHO/REHAB Continue PT/OT PRN: MEDICATIONS Tylenol 650 mg po every 4 hrs for fever zofran 4 mg IV every 6 hrs for n/v Hydralazine 5 mg IV every 4 hrs systolic pressure > 160 bowel regiment: lactulose 20 gm PO BID PRN constipation Supportive measures: Continue GI and DVT prophylaxis Disposition: Pending improvement in clinical condition. All questions answered time spent: > 35 min MYRIAM MYERS MD Aug 13, 2024 11:09
[2024-08-13] MEDS ORDERED: MAGNESIUM 2GM PREMIX 50ML 50 ML IV PRN ×2 (11:30)
[2024-08-13] MEDS ORDERED: IOHEXOL-350 50ML VIAL IV ONE (11:53)
[2024-08-13] MEDS: PoTASSium chloRIDE 20MEQ ER 20 MEQ ERTAB PO ONE (12:33)
[2024-08-13 12:51] LABS: % IRON SATURATION 6.6 % (22-44)
--- NOTE | 2024-08-13 13:20 | HMCIMG ---
CT CHEST WITH CONTRAST: INDICATION: evaluate right sided pneumonia. CONTRAST: 50 ml of Omnipaque 350 IV. FINDINGS: There are multiple areas of right lung consolidation predominantly in the right upper and right middle lobe. The left lung demonstrates an area of consolidation within the lingula and the left lower lobe. Mediastinum demonstrates 1 pathologic size lymph and multiple smaller nodes there is mild calcified coronary artery disease. The visualized intra-abdominal viscera is remarkable for fatty liver. The bony structures demonstrate stable degenerative changes of the spine. IMPRESSION: Bilateral consolidative infiltrates with pathologic size mediastinal lymphadenopathy..
--- NOTE | 2024-08-13 14:17 | NUR ---
DCP/INITIAL ASSESSMENT Patient lives with spouse, Rashid Wellington. She has no home services. DME: glucometer. Patient is able to complete ADLs and drives. She is employed multimedia designer. PCP is TAM Avalos. Pharmacy is [facility] in [place]. Patient has no issues with having stable usp to live in or transportation. She and spouse have lived in their home for some time. No concerns voiced regarding not having enough food in the home. No safety concerns voiced regarding returning home. DCP is home. Addendum: 08/13/24 at 1419 by SUMMER YATES Amended: Links added.
[2024-08-13] MEDS ORDERED: hydrALAZine 20MG/ML VIAL IV PRN (15:30)
[2024-08-13] MEDS ORDERED: VANCOMYCIN PROTOCOL PER PHARMACY IV SCH (15:30)
[2024-08-13] MEDS: VANCOMYCIN 1.75 GM/250 ML BAG 250 ML IV ONE (15:40)
[2024-08-13] MEDS: cefTRIAXone 1G VIAL IVPB SCH (18:40)
--- NOTE | 2024-08-13 19:46 | CONS ---
[facility] CONSULTATION NOTE Date Patient Seen: Aug 13, 2024 Time of Visit: 19:38 Supervising Physician: [Dr. Cruz] Reason for Consultation: [Large R-lung Pneumonia] Primary Care Physician: [Dr. Avalos] Outpatient Specialists: [ ] Inpatient Consults: [[facility]] PROBLEM LIST: Sepsis 2/2 pneumonia Community acquired vs viral Pneumonia, POA Acute hypoxemic respiratory failure, POA, resolved Uncontrolled Diabetes mellitius type2, POA Hypokalemia, POA Hypomagnesemia, POA Leukocytosis, POA Asthma Hyperlipidemia Plan: Continue broad-spectrum antibiotics Follow cultures, tailor antibiotics as indicated Order baseline ABG Follow Legionella and mycoplasma studies Continue Nebulizer treatments as needed Supplemental oxygen as needed, wean off as tolerated Recommend treating the underlying pneumonia and repeating CT in 7-10 days for reevaluation and possible biopsy Further management per primary Disposition per primary HPI: [This is a 64 asthma who presents to the ED for evaluation of cough congestion right-sided chest pain. Per ED report, she was diagnosed with the flu three days prior. She became short of breaths prompting her to come to the ED. her labs on admission revealed leukocytosis with WBC of 19, hyponatremia 131 and hypokalemia at 3.2. Pro count was mildly elevated at 0.9. Pending blood, urine, and sputum cultures. She was hypoxemic supplemental oxygen with 2 L NC. And initiated on doxycycline, vancomycin and Rocephin. A CT of the chest was ordered which revealed bilateral consolidative infiltrates with pathological sized mediastinal lymph nodes. Patient denies a personal history of cancer. States has never smoked. She has a history of asthma but has otherwise not had any other pulmonary conditions.] PAST MEDICAL HX: see above PAST SURGICAL HX: noncontributory SOCIAL HISTORY: No tobacco, ETOH, or illicit drug use Coded Allergies: No Known Drug Allergies (Verified Allergy, Unknown, 01/15/16) REVIEW OF SYSTEMS: 12 point ROS reviewed with patient. Pertinent positives mentioned above. Otherwise negative. PHYSICAL EXAM: GENERAL: alert, weak, awake oriented x 3 HEENT: EOMI, Sclera non icteric, moist mucosa NECK: Supple, no JVD, trachea midline LUNGS: Clear breath sounds bilaterally. No wheezes HEART: Regular rate and rhythm. Normal S1 and S2, without murmurs ABD: Abdomen soft, nontender. Bowel sounds present EXT: No clubbing cyanosis or edema NEURO: Alert and oriented to person, follows commands Vital Signs (last 8hr) Date Time Temp Pulse Resp B/P (MAP) Pulse Ox O2 Delivery O2 Flow Rate FiO2 08/13/24 19:00 90 18 08/13/24 19:00 78 18 N/A Room Air 1.0 24 08/13/24 16:00 99.0 98 20 121/66 95 Nasal Cannula 1.0 08/13/24 12:00 98.2 92 22 118/62 95 Nasal Cannula 2.0 LABS: Hematology Labs: Test 08/13/24 05:56 08/12/24 18:03 Range/Units White Blood Count 17.8 H 4.8-10.8 K/uL Red Blood Count 3.73 L 4.00-5.50 MIL/uL Hemoglobin 11.3 L 12.0-16.0 g/dL Hematocrit 32.2 L 36-48 % Mean Corpuscular Volume 86.3 79-99 fL Mean Corpuscular Hemoglobin 30.3 27.0-33.0 pg Mean Corpuscular Hemoglobin Concent 35.1 32.0-36.0 g/dL Red Cell Distribution Width 12.7 11.0-15.5 % Platelet Count 159 130-400 K/uL Mean Platelet Volume 10.0 7.5-10.5 fL Immature Granulocyte % (Auto) 0.6 0-1 % Neutrophils (%) (Auto) 84.6 H 40.0-77.0 % Lymphocytes (%) (Auto) 5.0 L 21.0-51.0 % Monocytes (%) (Auto) 9.3 3.0-13.0 % Eosinophils (%) (Auto) 0.3 0.0-8.0 % Basophils (%) (Auto) 0.2 0.0-5.0 % Neutrophils # (Auto) 15.1 H 1.8-7.7 K/uL Lymphocytes # (Auto) 0.9 L 1.0-4.8 K/uL Monocytes # (Auto) 1.7 H 0.1-1.0 K/uL Eosinophils # (Auto) 0.05 0.00-0.70 K/uL Basophils # (Auto) 0.03 0.00-0.20 K/uL Absolute Immature Granulocyte (auto 0.11 0-1 K/uL Nucleated Red Blood Cells 0.0 0.0-0.19 % Segmented Neutrophils % 78 H 40-70 % Band Neutrophils % 12 H 0-2 % Lymphocytes % (Manual) 1 L 22-44 % Monocytes % (Manual) 8 2-9 % Metamyelocytes % 1 H 0-0 % Differential Comment MANUAL DIFFERENTIAL White Cell Morphology Comment IMMATURE GRAN 1+ Platelet Morphology Comment ADEQUATE Red Blood Cell Morphology See comments Chemistry Labs: Test 08/13/24 15:56 08/13/24 11:41 08/13/24 05:56 08/12/24 18:03 Range/Units Whole Blood Glucose 145 H 70-110 MG/DL Magnesium Level 2.50 H 1.80-2.40 mg/dL Iron Level 11 L 50-170 mcg/dL Total Iron Binding Capacity 165 L 250-450 mcg/dL Percent Iron Saturation 6.6 L 22-44 % Sodium Level 138 136-145 mmol/L Potassium Level 3.3 L 3.5-5.1 mmol/L Chloride Level 102 101-111 mmol/L Carbon Dioxide Level 26 21-32 mmol/L Blood Urea Nitrogen 11 7-18 mg/dL Creatinine 0.7 0.5-1.0 mg/dL Glomerular Filtration Rate Calc 97 >90 mL/min Random Glucose 157 H 70-105 mg/dL Hemoglobin A1c 6.1 H 4.0-6.0 % Estimated Average Glucose (eAG) 128 H 70-126 mg/dL Total Calcium 8.1 L 8.5-10.1 mg/dL Phosphorus Level 2.1 L 2.5-4.9 mg/dL Lactic Acid Level 1.5 0.8-2.5 mmol/L Total Creatine Kinase 79 # 21-232 U/L Troponin I High Sensitivity 8 4-50 ng/L B-Type Natriuretic Peptide 52 0-100 pg/mL Procalcitonin 0.98 H 0.05-0.5 ng/mL DIAGNOSTICS / RADIOLOGY RESULTS: Reviewed PLAN NEURO: Minimize central acting medications as possible. Maintain fall precautions, adequate lighting during the day PULMONARY: Supplemental 02 as needed. Maintain aspiration precautions at all times CARDIOVASCULAR: Follow hemodynamics. Vital signs per facility protocol GI & NUTRITION: Continue with nutritional support. Continue stool softeners and laxatives as needed. KIDNEYS & ELECTROLYTES: Strict monitoring of intake, output and overall fluid balance. Avoid nephrotoxic medications to the extent possible. Medications to be dosed according to renal function. Monitor electrolytes and replace as needed ENDOCRINE: Maintain blood glucose between 100-180 at all times. Hypoglycemia protocol in place INFECTIOUS DISEASE: Trend temperature, WBC and procalcitonin level Follow cultures, deescalate antibiotics as soon as possible. Panculture if new onset fever ONCOLOGY/HEMATOLOGY/COAGULATION: Monitor for s/s of bleeding Monitor hemoglobin, coagulation studies as needed SKIN: Pressure ulcer prevention per facility protocol Specialty mattress ORTHO/REHAB: Continue PT/OT Prophylaxis: Continue GI and DVT prophylaxis Code Status: Full Resuscitation Disposition: TBD Other: Total patient care time exceeds 35 minutes excluding all procedures. HENRI LAY Aug 13, 2024 19:46
[2024-08-13] MEDS: monteLUKAST sodIUM 10 MG TAB PO SCH (20:37)
[2024-08-14] VITALS (12 sets, daily range): BP systolic 113–134; BP diastolic 54–70; PULSE 74–107; RESP 15–18; TEMP 98–100; O2SAT 92–97
[2024-08-14 04:20] LABS: HEMATOCRIT 34.5 % (36-48); MEAN CORPUSCULAR HEMOGLOBIN 30.3 pg (27.0-33.0); MEAN CORPUSCULAR HGB CONC 34.2 g/dL (32.0-36.0); MEAN CORPUSCULAR VOLUME 88.7 fL (79-99); RED BLOOD CELL COUNT(AUTO) 3.89 MIL/uL (4.00-5.50); RED CELL DISTRIBUTION WIDTH 12.9 % (11.0-15.5); WHITE BLOOD COUNT (AUTO) 17.4 K/uL (4.8-10.8)
[2024-08-14 04:47] LABS: ALBUMIN 2.1 g/dL (3.5-5.0); CREATININE 0.7 mg/dL (0.5-1.0); POTASSIUM 3.8 mmol/L (3.5-5.1); TOTAL PROTEIN, SERUM 6.5 g/dL (6.0-8.3)
[2024-08-14] MEDS: VANCOMYCIN 1G/250ML KIT 250 ML IV SCH (05:34)
[2024-08-14] MEDS: LoSARTan 50 MG TABLET PO SCH (09:06)
[2024-08-14] MEDS: PANTOPrazole 40 MG TAB DR PO SCH (09:06)
[2024-08-14] MEDS: guaiFENesin SUGAR-FREE 100 MG/5 ML UDCUP PO PRN (09:13)
[2024-08-14 13:18] LABS: ABG BASE EXCESS 1.1 mmol/L (-2.0-3.0); ABG HCO3 23.3 mmol/L (21.0-28.0); ABG OXYGEN SATURATION 94.7 % (94.0-98.0); ABG PCO2 31 mmHg (32-45); DEVICE COMMENT RR RA; PO2, ARTERIAL BG 65.3 mmHg (83.0-108.0); VENT MODE, BG RA (ROOM AIR)
--- NOTE | 2024-08-14 16:20 | PN ---
[facility] PROGRESS NOTE Date of Service: Aug 14, 2024 Time of Service: 16:13 SUBJECTIVE: This is a 64-year-old female, presented to the emergency room with a chief complaint of cough productive of brownish phlegm with the associated shortness of breath. Chest x-ray showed large right lung infiltrate. 08/13 patient is seen and examined at bedside, case discussed with the RN, no acute events overnight. During my visit the patient comfortable in bed, alert oriented x3, following commands, admits cough productive brownish phlegm, right- sided pleuritic chest pain. BP 97/53, spiked fever last night, she is saturating 96% on 2 L via nasal cannula. WBC remains elevated at 17.8. Potassium 3.3. Hemoglobin A1c 6.1. Procalcitonin mildly elevated 0.98. Appearance of the UA cloudy. Small occult blood. Serology to include influenza type a and B negative. SARS antigen negative. Chest x-ray shows large right lung infiltrate. 08/14 patient seen at bedside, no acute events overnight. There is a concern for underlying malignancy given the lesions noted in the patient's lungs. Discussed case with pulmonology who recommends a total of seven days of antibiotics before repeating CT imaging of the chest. If lesions are still notable may need a biopsy. She has been afebrile, hemodynamically stable saturating well on room air. WBC improved from 17.8 down to 17.4, hemoglobin improved from 11.3 up to 11.8, remainder of her labs are relatively unremarkable. Blood cultures positive 2/2 bottles for Gram-positive organism, infectious Disease has been consulted for further recommendations. REVIEW OF SYSTEMS CONSTITUTIONAL: Denies fevers, chills, or night sweats. No unintentional weight loss reported. NEUROLOGICAL: Denies headache, amaurosis fugax, motor weakness, sensory deficit, vertigo/spinning sensation, gait abnormalities, or tremors. ENT: No hearing loss, otalgia, otorrhea, rhinitis, rhinorrhea, hoarseness, or sore throat. CARDIOVASCULAR: Denies any exertional angina, dyspnea on exertion, orthopnea, paroxysmal nocturnal dyspnea, palpitations, life-threatening arrhythmias, claudication. PULMONARY: Denies any shortness of breath, cough, phlegm/sputum, hemoptysis, pleuritic chest pain. SLEEP: Denies morning headaches, daytime somnolence or napping. Denies difficulty falling asleep, staying asleep, waking from sleep. Denies knowledge of snoring. GASTROINTESTINAL: Denies any type of dysphagia to either liquids or solids. Denies nausea, vomiting, pyrosis, early satiety, abdominal pain, diarrhea, constipation, or changes in stool consistency or caliber. Denies coffee-ground emesis, hematemesis, hematochezia, or melanotic stools. GENITOURINARY: Denies frequency, urgency, nocturia, hematuria or incontinence (Storage/Irritative symptoms.) Low urinary stream, straining to void, urinary intermittency or hesitancy, splitting of the voiding stream, terminal dribbling. ENDOCRINOLOGIC: Denies polyuria, polydipsia, polyphagia or heat/cold intolerances. HEMATOLOGIC: Denies thrombophilia/previous clots, or coagulopathy/bleeding disorders. ONCOLOGIC: Denies personal history of malignancy. DERMATOLOGIC: Denies rashes or pruritus. PSYCHIATRIC: Denies any suicidal or homicidal ideation. Denies hallucinations. PHYSICAL EXAM GENERAL APPEARANCE: The patient is awake, alert, and oriented, in no acute cardiopulmonary distress. NEUROLOGICAL: Cranial nerves II-XII grossly intact. Motor is 5/5 in bilateral upper and lower extremities proximal to distal. No sensory deficits. HEENT: Face is symmetric. Pupils are equal and reactive. Extraocular movements are intact. NECK: Supple. No JVD. No thyromegaly. No submental, submandibular, pre- /postauricular, occipital or supraclavicular lymphadenopathy. CHEST: Normal chest expansion. No Telemetry. LUNGS: Absence of any rales, rhonchi or any wheezing. CARDIOVASCULAR: Regular. S1 and S2 normal. No appreciable rubs, murmurs or gallops. ABDOMEN: Soft, nontender, and nondistended. There is no rebound, voluntary guarding, or rigidity. : Deferred. No [place]. EXTREMITIES: Non-edematous and not cyanotic. No clubbing. Good capillary refill. SKIN: No skin breakdown. Vital Signs (last 8hr) Date Time Temp Pulse Resp B/P (MAP) Pulse Ox O2 Delivery O2 Flow Rate FiO2 08/14/24 12:00 98.1 95 15 113/60 95 Room Air 0.0 08/14/24 11:21 89 18 LABS: Laboratory: Test 08/14/24 13:16 2/9/25 11:27 08/14/24 09:15 08/14/24 03:05 Range/Units Blood Gas Specimen Type Arterial Arterial Blood pH 7.500 H 7.350-7.450 Arterial Blood Partial Pressure CO2 31 L 32-45 mmHg Arterial Blood Partial Pressure O2 65.3 L 83.0-108.0 mmHg Arterial Blood HCO3 23.3 21.0-28.0 mmol/L Arterial Blood Oxygen Saturation 94.7 94.0-98.0 % Arterial Blood Base Excess 1.1 -2.0-3.0 mmol/L Blood Gas Temperature 37.0 35.5-37.0 CELSIUS Blood Gas Vent Mode RA ROOM AIR FiO2 21.0 % Blood Gas Specimen Comment RR RA Whole Blood Glucose 190 #H 70-110 MG/DL Group A Streptococcus Rapid negative NEGATIVE White Blood Count 17.4 H 4.8-10.8 K/uL Red Blood Count 3.89 L 4.00-5.50 MIL/uL Hemoglobin 11.8 L 12.0-16.0 g/dL Hematocrit 34.5 L 36-48 % Mean Corpuscular Volume 88.7 79-99 fL Mean Corpuscular Hemoglobin 30.3 27.0-33.0 pg Mean Corpuscular Hemoglobin Concent 34.2 32.0-36.0 g/dL Red Cell Distribution Width 12.9 11.0-15.5 % Platelet Count 181 130-400 K/uL Mean Platelet Volume 10.9 H 7.5-10.5 fL Nucleated Red Blood Cells 0.0 0.0-0.19 % Sodium Level 137 136-145 mmol/L Potassium Level 3.8 3.5-5.1 mmol/L Chloride Level 101 101-111 mmol/L Carbon Dioxide Level 27 21-32 mmol/L Blood Urea Nitrogen 12 7-18 mg/dL Creatinine 0.7 0.5-1.0 mg/dL Glomerular Filtration Rate Calc 97 >90 mL/min Random Glucose 108 H 70-105 mg/dL Total Calcium 8.5 8.5-10.1 mg/dL Magnesium Level 2.00 1.80-2.40 mg/dL Total Bilirubin 1.0 0.2-1.0 mg/dL Aspartate Amino Transf (AST/SGOT) 23 10-37 U/L Alanine Aminotransferase (ALT/SGPT) 42 12-78 U/L Alkaline Phosphatase 117 50-136 U/L Total Protein 6.5 6.0-8.3 g/dL Albumin 2.1 L 3.5-5.0 g/dL Test 08/13/24 11:41 08/13/24 05:56 08/12/24 21:54 08/12/24 18:15 Range/Units Iron Level 11 L 50-170 mcg/dL Total Iron Binding Capacity 165 L 250-450 mcg/dL Percent Iron Saturation 6.6 L 22-44 % Immature Granulocyte % (Auto) 0.6 0-1 % Neutrophils (%) (Auto) 84.6 H 40.0-77.0 % Lymphocytes (%) (Auto) 5.0 L 21.0-51.0 % Monocytes (%) (Auto) 9.3 3.0-13.0 % Eosinophils (%) (Auto) 0.3 0.0-8.0 % Basophils (%) (Auto) 0.2 0.0-5.0 % Neutrophils # (Auto) 15.1 H 1.8-7.7 K/uL Lymphocytes # (Auto) 0.9 L 1.0-4.8 K/uL Monocytes # (Auto) 1.7 H 0.1-1.0 K/uL Eosinophils # (Auto) 0.05 0.00-0.70 K/uL Basophils # (Auto) 0.03 0.00-0.20 K/uL Absolute Immature Granulocyte (auto 0.11 0-1 K/uL Hemoglobin A1c 6.1 H 4.0-6.0 % Estimated Average Glucose (eAG) 128 H 70-126 mg/dL Phosphorus Level 2.1 L 2.5-4.9 mg/dL Urine Color YELLOW YELLOW Urine Appearance CLOUDY H CLEAR Urine pH 5.5 5.0-8.0 Urine Specific [place] 1.019 1.001-1.031 Urine Protein 70 H NEGATIVE mg/dL Urine Glucose (UA) 200 H NEGATIVE mg/dL Urine Ketones NEGATIVE NEGATIVE mg/dL Urine Occult Blood SMALL H NEGATIVE Urine Nitrate NEGATIVE NEGATIVE Urine Bilirubin NEGATIVE NEGATIVE mg/dL Urine Urobilinogen 2.0 H 0.2-1.0 mg/dL Urine Leukocyte Esterase NEGATIVE NEGATIVE Blanka/uL Urine RBC 0-1 0-1 /HPF Urine WBC 2-5 H 0-1 /HPF Urine Squamous Epithelial Cells RARE 0-2 /HPF Urine Bacteria None None Seen /HPF Influenza Type A Antigen Negative For Type A NEGATIVE Influenza Type B Antigen Negative For Type B NEGATIVE SARS-CoV-2, RNA, NAAT NEGATIVE SARS CoV-2 NEGATIVE Test 08/12/24 18:03 Range/Units Segmented Neutrophils % 78 H 40-70 % Band Neutrophils % 12 H 0-2 % Lymphocytes % (Manual) 1 L 22-44 % Monocytes % (Manual) 8 2-9 % Metamyelocytes % 1 H 0-0 % Differential Comment MANUAL DIFFERENTIAL White Cell Morphology Comment IMMATURE GRAN 1+ Platelet Morphology Comment ADEQUATE Red Blood Cell Morphology See comments Lactic Acid Level 1.5 0.8-2.5 mmol/L Total Creatine Kinase 79 # 21-232 U/L Troponin I High Sensitivity 8 4-50 ng/L B-Type Natriuretic Peptide 52 0-100 pg/mL Procalcitonin 0.98 H 0.05-0.5 ng/mL Current Medications Medications (Trade) Dose Ordered Sig/Moe Route PRN Reason Start Time Stop Time Status Last Admin Dose Admin Acetaminophen (TYLenol 325MG TAB) 650 mg Q6H PRN PO TEMPERATURE GREATER THAN 101.5 08/12/24 21:30 09/11/24 21:29 08/14/24 09:13 650 MG Albuterol (DUOneb) 1 UDVIAL [id number] IH 08/13/24 00:00 09/12/24 00:00 08/14/24 11:16 1 UDVIAL Atorvastatin Calcium (LIPItor 20MG) 20 mg HS PO 08/14/24 21:00 09/13/24 20:59 Azithromycin 250 ml @ 250 mls/hr Q24H IVPB 08/12/24 20:00 08/12/24 21:46 DC 08/12/24 20:50 250 MLS/HR Ceftriaxone Sodium (ROCEphine 1G INJ) 1 gm Q24H IVPB 08/13/24 18:30 08/23/24 18:29 08/13/24 18:40 1 GM Doxycycline Hyclate 250 ml @ 125 mls/hr Q12H IV 08/13/24 08:00 08/23/24 07:59 08/14/24 09:06 125 MLS/HR Enoxaparin Sodium (Lovenox) 40 mg DAILY SQ 08/13/24 09:00 09/12/24 08:59 08/14/24 09:06 40 MG Famotidine (Pepcid 20mg Tab) 20 mg DAILY PO 08/13/24 09:00 08/13/24 11:20 DC 08/13/24 10:51 20 MG Guaifenesin (RobiTUSSin SUGAR-FREE 100 MG/ 5 ML UDCUP) 400 mg Q4H PRN PO cough 08/12/24 21:30 09/11/24 21:29 08/14/24 09:13 400 MG Hydralazine HCl (APRESOLine 20MG INJ) 5 mg Q6H PRN IV For:SBP above 160;DBP above 90 08/13/24 15:30 09/12/24 15:29 Hydralazine HCl (APRESOLine 20MG INJ) 10 mg Q6H PRN IV For:SBP above 160;DBP above 90 08/12/24 21:30 08/13/24 11:12 DC Insulin Human Regular (humuLIN R 100 UNIT/ML 3ML) INSULIN SLIDING SCAL... ACHS SQ 08/13/24 07:30 09/12/24 07:29 08/14/24 12:34 2 UNIT Losartan Potassium (CozAAR 50 mg TAB) 50 mg DAILY PO 08/14/24 09:00 09/13/24 08:59 08/14/24 09:06 50 MG Magnesium Sulfate 50 ml @ 0 mls/hr PROTOCOL PRN IV H 08/12/24 21:30 08/13/24 11:30 DC 08/13/24 01:15 25 MLS/HR Magnesium Sulfate 50 ml @ 0 mls/hr PROTOCOL PRN IV hypomagnesemia 08/13/24 11:30 08/13/24 11:31 DC Magnesium Sulfate 50 ml @ 0 mls/hr PROTOCOL PRN IV hypomagnesemia 08/13/24 11:30 09/12/24 11:29 Montelukast Sodium (SinguLAIR) 10 mg HS PO 08/13/24 21:00 09/12/24 20:59 08/13/24 20:37 10 MG Morphine Sulfate (morPHINE 2MG SYG) 2 mg Q4H PRN IVP SEVERE PAIN (7-10) 08/12/24 21:30 08/19/24 21:29 Ondansetron HCl (zoFRAN 4MG INJ) 4 mg Q6H PRN IV NAUSEA/VOMITING 08/12/24 21:30 09/11/24 21:29 Pantoprazole Sodium (PROTonix 40MG TAB) 40 mg DAILY PO 08/14/24 09:00 09/13/24 08:59 08/14/24 09:06 40 MG Potassium Chloride 100 ml @ 100 mls/hr AD PRN IV POTASSIUM PROTOCOL 08/12/24 21:30 09/11/24 21:29 Potassium Chloride (K-Dur/Klor-Con 20meq) 20 meq AD PRN PO POTASSIUM PROTOCOL 08/12/24 21:30 09/11/24 21:29 08/14/24 09:04 20 MEQ Potassium Chloride (KCl 10% Elixir 20meq/15ml) 20 meq AD PRN PO POTASSIUM PROTOCOL 08/12/24 21:30 09/11/24 21:29 08/13/24 10:53 20 MEQ Vancomycin HCl 250 ml @ 125 mls/hr Q12H IV 08/14/24 06:00 08/24/24 05:59 08/14/24 05:34 125 MLS/HR Vancomycin HCl (Vancomycin Protocol) 1 each AD IV 08/13/24 15:30 08/27/24 15:29 DIAGNOSTICS / RADIOLOGY: [ ] ASSESSMENT: Pneumonia, POA Gram positive bacteremia Uncontrolled Diabetes mellitius type2, last A1C 6.1 POA Hypokalemia, POA Hypomagnesemia, POA Leukocytosis, POA Asthma Hyperlipidemia PLAN: Continue Vancomycin and ceftriaxone Continue atorvastatin 20mg HS Continue Losartan 50mg q24h Continue doxycycline Continue sliding scale Pulmonology recommending 7 days antibiotics before repeating CT Chest Will order CT abdomen/pelvis to assess for primary malignancy Echo ordered to assess for endocarditis Infectious disease consulted for antibiotics stewardship Disposition: Pending antibiotics, ct abdomen/pelvis, repeat CT chest, ID r ecommendations PAUL SENA MD Aug 14, 2024 16:20
[2024-08-14] MEDS: atorVAStatin 20 MG TABLET PO SCH (20:31)
--- NOTE | 2024-08-14 21:35 | PN ---
[facility] PROGRESS NOTE Date Patient Seen: Aug 14, 2024 Time of Visit: 21:20 Supervising Physician: [Dr. Cruz] Primary Care Physician: [Dr. Avalos] Outpatient Specialists: [ ] Inpatient Consults: [BIS] PROBLEM LIST: Sepsis without septic shock secondary to pneumonia, improved Gram positive bacteremia, 2/2 pending final result Community acquired vs viral Pneumonia, POA Acute hypoxemic respiratory failure, POA, resolved Uncontrolled Diabetes mellitius type2, POA Hypokalemia, POA Hypomagnesemia, POA Asthma Hyperlipidemia Plan: Continue broad-spectrum antibiotics Follow cultures, tailor antibiotics as indicated Order baseline ABG Follow Legionella and mycoplasma studies Continue Nebulizer treatments as needed Supplemental oxygen as needed, wean off as tolerated Recommend treating the underlying pneumonia and repeating CT in 7-10 days for reevaluation and possible biopsy Further management per primary Disposition per primary INTERVAL HISTORY: [Patient is evaluated at bedside. She continues with productive cough. No current respiratory distress on room air. Her ABG showed mild respiratory alkalosis and patient was placed on nasal cannula 2 L NC for comfort. WBC downtrended to 17. Legionella and mycoplasma labs pending. Gram positive 2/2 in the blood, ID consulted.] REVIEW OF SYSTEMS: 12 point ROS reviewed with patient. Pertinent positives mentioned above. Otherwise negative. PHYSICAL EXAM: GENERAL: alert, weak, awake oriented x 3 HEENT: EOMI, Sclera non icteric, moist mucosa NECK: Supple, no JVD, trachea midline LUNGS: Clear breath sounds bilaterally. No wheezes HEART: Regular rate and rhythm. Normal S1 and S2, without murmurs ABD: Abdomen soft, nontender. Bowel sounds present EXT: No clubbing cyanosis or edema NEURO: Alert and oriented to person, follows commands Vital Signs (last 8hr) Date Time Temp Pulse Resp B/P (MAP) Pulse Ox O2 Delivery O2 Flow Rate FiO2 08/14/24 20:23 98.6 96 18 117/54 97 Nasal Cannula 08/14/24 19:04 94 18 08/14/24 19:04 74 18 N/A Room Air 21 08/14/24 16:00 98.1 88 16 119/69 97 Nasal Cannula 2.0 LABS: Hematology Labs: Test 08/14/24 03:05 08/13/24 05:56 Range/Units White Blood Count 17.4 H 4.8-10.8 K/uL Red Blood Count 3.89 L 4.00-5.50 MIL/uL Hemoglobin 11.8 L 12.0-16.0 g/dL Hematocrit 34.5 L 36-48 % Mean Corpuscular Volume 88.7 79-99 fL Mean Corpuscular Hemoglobin 30.3 27.0-33.0 pg Mean Corpuscular Hemoglobin Concent 34.2 32.0-36.0 g/dL Red Cell Distribution Width 12.9 11.0-15.5 % Platelet Count 181 130-400 K/uL Mean Platelet Volume 10.9 H 7.5-10.5 fL Nucleated Red Blood Cells 0.0 0.0-0.19 % Immature Granulocyte % (Auto) 0.6 0-1 % Neutrophils (%) (Auto) 84.6 H 40.0-77.0 % Lymphocytes (%) (Auto) 5.0 L 21.0-51.0 % Monocytes (%) (Auto) 9.3 3.0-13.0 % Eosinophils (%) (Auto) 0.3 0.0-8.0 % Basophils (%) (Auto) 0.2 0.0-5.0 % Neutrophils # (Auto) 15.1 H 1.8-7.7 K/uL Lymphocytes # (Auto) 0.9 L 1.0-4.8 K/uL Monocytes # (Auto) 1.7 H 0.1-1.0 K/uL Eosinophils # (Auto) 0.05 0.00-0.70 K/uL Basophils # (Auto) 0.03 0.00-0.20 K/uL Absolute Immature Granulocyte (auto 0.11 0-1 K/uL Chemistry Labs: Test 08/14/24 19:21 08/14/24 03:05 08/13/24 11:41 08/13/24 05:56 Range/Units Whole Blood Glucose 148 H 70-110 MG/DL Sodium Level 137 136-145 mmol/L Potassium Level 3.8 3.5-5.1 mmol/L Chloride Level 101 101-111 mmol/L Carbon Dioxide Level 27 21-32 mmol/L Blood Urea Nitrogen 12 7-18 mg/dL Creatinine 0.7 0.5-1.0 mg/dL Glomerular Filtration Rate Calc 97 >90 mL/min Random Glucose 108 H 70-105 mg/dL Total Calcium 8.5 8.5-10.1 mg/dL Magnesium Level 2.00 1.80-2.40 mg/dL Total Bilirubin 1.0 0.2-1.0 mg/dL Aspartate Amino Transf (AST/SGOT) 23 10-37 U/L Alanine Aminotransferase (ALT/SGPT) 42 12-78 U/L Alkaline Phosphatase 117 50-136 U/L Total Protein 6.5 6.0-8.3 g/dL Albumin 2.1 L 3.5-5.0 g/dL Iron Level 11 L 50-170 mcg/dL Total Iron Binding Capacity 165 L 250-450 mcg/dL Percent Iron Saturation 6.6 L 22-44 % Hemoglobin A1c 6.1 H 4.0-6.0 % Estimated Average Glucose (eAG) 128 H 70-126 mg/dL Phosphorus Level 2.1 L 2.5-4.9 mg/dL DIAGNOSTICS / RADIOLOGY RESULTS: [Reviewed] PLAN NEURO: Minimize central acting medications as possible. Maintain fall precautions, adequate lighting during the day PULMONARY: Supplemental 02 as needed. Maintain aspiration precautions at all times CARDIOVASCULAR: Follow hemodynamics. Vital signs per facility protocol GI & NUTRITION: Continue with nutritional support. Continue stool softeners and laxatives as needed. KIDNEYS & ELECTROLYTES: Strict monitoring of intake, output and overall fluid balance. Avoid nephrotoxic medications to the extent possible. Medications to be dosed according to renal function. Monitor electrolytes and replace as needed ENDOCRINE: Maintain blood glucose between 100-180 at all times. Hypoglycemia protocol in place INFECTIOUS DISEASE: Trend temperature, WBC and procalcitonin level Follow cultures, deescalate antibiotics as soon as possible. Panculture if new onset fever ONCOLOGY/HEMATOLOGY/COAGULATION: Monitor for s/s of bleeding Monitor hemoglobin, coagulation studies as needed SKIN: Pressure ulcer prevention per facility protocol Specialty mattress ORTHO/REHAB: Continue PT/OT Prophylaxis: Continue GI and DVT prophylaxis Code Status: Full Resuscitation Disposition: TBD Other: Total patient care time exceeds 35 minutes excluding all procedures. HENRI LAY Aug 14, 2024 21:35
[2024-08-14 22:10] LABS: HIV 1&2 ANTIBODY Non-Reactive (Negative); HIV-1 p24 Antigen Non-Reactive (Negative)
--- NOTE | 2024-08-14 22:21 | HMCIMG ---
CT ABDOMEN/PELVIS W/O CONTRAST HISTORY: Underlying malignancy COMPARISON: 02/18/2011 TECHNIQUE: Multiple sequential axial images of the abdomen and pelvis were obtained from the dome of the diaphragm through symphysis pubis. Patient was not given contrast through intravenous route. Oral contrast was not given. FINDINGS: There is a small right pleural effusion. There are bilateral groundglass pulmonary infiltrates with superimposed nodule not excluded. There may be left lower lung nodule posteriorly pleural-based measuring 3.5 x 3.6 cm. . Degenerative changes of the thoracolumbar spine are present. The heart is not enlarged. Liver measures 18 cm. The liver, spleen, adrenal glands and pancreas are unremarkable. There is no evidence of hydronephrosis bilaterally. No evidence of renal stone is seen. Fecal material is seen in the colon. There are normal size retroperitoneal and mesenteric lymph nodes. No ascites is seen. Atherosclerotic changes are present. Pelvic sidewalls are symmetric bilaterally. Bladder is well distended without wall thickening. IMPRESSION: 1. Right pleural effusion and bilateral groundglass pulmonary infiltrates with superimposed lung nodule not excluded there may be left posterior pleural base mass posteriorly measuring 3.[address] was performed with one or more following dose reduction techniques: automated exposure control, adjustment of the mA and kv according to patient's size, or use of a iterative reconstruction technique.
[2024-08-15] VITALS (14 sets, daily range): BP systolic 123–132; BP diastolic 55–74; PULSE 82–108; RESP 16–20; TEMP 98.4–100; O2SAT 93–95
[2024-08-15 05:44] LABS: BASOPHILS # (AUTO) 0.03 K/uL (0.00-0.20); BASOPHILS % (AUTO) 0.2 % (0.0-5.0); EOSINOPHILS # (AUTO) 0.05 K/uL (0.00-0.70); EOSINOPHILS % (AUTO) 0.3 % (0.0-8.0); HEMATOCRIT 31.8 % (36-48); IMMATURE GRANULOCYTE ABSOLUTE 0.23 K/uL (0-1); LYMPHOCYTES # (AUTO) 0.9 K/uL (1.0-4.8); LYMPHOCYTES % (AUTO) 5.9 % (21.0-51.0); MEAN CORPUSCULAR HGB CONC 34.6 g/dL (32.0-36.0); MEAN CORPUSCULAR VOLUME 86.6 fL (79-99); MONOCYTES # (AUTO) 1.2 K/uL (0.1-1.0); MONOCYTES % (AUTO) 8.1 % (3.0-13.0); NEUTROPHILS # (AUTO) 12.4 K/uL (1.8-7.7); NEUTROPHILS % (AUTO) 83.9 % (40.0-77.0); PLATELET COUNT (AUTO) 227 K/uL (130-400); RED BLOOD CELL COUNT(AUTO) 3.67 MIL/uL (4.00-5.50); RED CELL DISTRIBUTION WIDTH 12.9 % (11.0-15.5); WHITE BLOOD COUNT (AUTO) 14.8 K/uL (4.8-10.8)
[2024-08-15 06:10] LABS: CREATININE 0.6 mg/dL (0.5-1.0); MAGNESIUM 1.8 mg/dL (1.80-2.40); PHOSPHORUS 2.2 mg/dL (2.5-4.9); POTASSIUM 3.7 mmol/L (3.5-5.1); VANCOMYCIN TROUGH 9.4 UG/ML (10.0-20.0)
[2024-08-15] MEDS: VANCOMYCIN 1.25 GM/250 ML BAG 250 ML IV SCH (06:33)
--- NOTE | 2024-08-15 10:26 | PN ---
[facility] PROGRESS NOTE Date of Service: Aug 15, 2024 Time of Service: 09:56 SUBJECTIVE: This is a 64-year-old female, presented to the emergency room with a chief complaint of cough productive of brownish phlegm with the associated shortness of breath. Chest x-ray showed large right lung infiltrate. 08/13 patient is seen and examined at bedside, case discussed with the RN, no acute events overnight. During my visit the patient comfortable in bed, alert oriented x3, following commands, admits cough productive brownish phlegm, right- sided pleuritic chest pain. BP 97/53, spiked fever last night, she is saturating 96% on 2 L via nasal cannula. WBC remains elevated at 17.8. Potassium 3.3. Hemoglobin A1c 6.1. Procalcitonin mildly elevated 0.98. Appearance of the UA cloudy. Small occult blood. Serology to include influenza type a and B negative. SARS antigen negative. Chest x-ray shows large right lung infiltrate. 08/14 patient seen at bedside, no acute events overnight. There is a concern for underlying malignancy given the lesions noted in the patient's lungs. Discussed case with pulmonology who recommends a total of seven days of antibiotics before repeating CT imaging of the chest. If lesions are still notable may need a biopsy. She has been afebrile, hemodynamically stable saturating well on room air. WBC improved from 17.8 down to 17.4, hemoglobin improved from 11.3 up to 11.8, remainder of her labs are relatively unremarkable. Blood cultures positive 2/2 bottles for Gram-positive organism, infectious Disease has been consulted for further recommendations. 08/15 patient seen at bedside, no acute events overnight. She has been afebrile, hemodynamically stable saturating well on 2 L nasal cannula, we will wean as able. WBC improved from 17.4 down to 14.8, hemoglobin decreased from 11.8 down to 11.0, remainder of her labs are relatively unremarkable. Sputum and blood growing MRSA, infectious Disease recommendations pending, we will follow up. Echocardiogram has been ordered to rule out endocarditis. REVIEW OF SYSTEMS CONSTITUTIONAL: Denies fevers, chills, or night sweats. No unintentional weight loss reported. NEUROLOGICAL: Denies headache, amaurosis fugax, motor weakness, sensory def icit, vertigo/spinning sensation, gait abnormalities, or tremors. ENT: No hearing loss, otalgia, otorrhea, rhinitis, rhinorrhea, hoarseness, or sore throat. CARDIOVASCULAR: Denies any exertional angina, dyspnea on exertion, orthopnea, paroxysmal nocturnal dyspnea, palpitations, life-threatening arrhythmias, claudication. PULMONARY: Denies any shortness of breath, cough, phlegm/sputum, hemoptysis, pleuritic chest pain. SLEEP: Denies morning headaches, daytime somnolence or napping. Denies difficulty falling asleep, staying asleep, waking from sleep. Denies knowledge of snoring. GASTROINTESTINAL: Denies any type of dysphagia to either liquids or solids. Denies nausea, vomiting, pyrosis, early satiety, abdominal pain, diarrhea, constipation, or changes in stool consistency or caliber. Denies coffee-ground emesis, hematemesis, hematochezia, or melanotic stools. GENITOURINARY: Denies frequency, urgency, nocturia, hematuria or incontinence (Storage/Irritative symptoms.) Low urinary stream, straining to void, urinary intermittency or hesitancy, splitting of the voiding stream, terminal dribbling. ENDOCRINOLOGIC: Denies polyuria, polydipsia, polyphagia or heat/cold intolerances. HEMATOLOGIC: Denies thrombophilia/previous clots, or coagulopathy/bleeding disorders. ONCOLOGIC: Denies personal history of malignancy. DERMATOLOGIC: Denies rashes or pruritus. PSYCHIATRIC: Denies any suicidal or homicidal ideation. Denies hallucinations. PHYSICAL EXAM GENERAL APPEARANCE: The patient is awake, alert, and oriented, in no acute cardiopulmonary distress. NEUROLOGICAL: Cranial nerves II-XII grossly intact. Motor is 5/5 in bilateral upper and lower extremities proximal to distal. No sensory deficits. HEENT: Face is symmetric. Pupils are equal and reactive. Extraocular movements are intact. NECK: Supple. No JVD. No thyromegaly. No submental, submandibular, pre- /postauricular, occipital or supraclavicular lymphadenopathy. CHEST: Normal chest expansion. No Telemetry. LUNGS: Absence of any rales, rhonchi or any wheezing. CARDIOVASCULAR: Regular. S1 and S2 normal. No appreciable rubs, murmurs or gallops. ABDOMEN: Soft, nontender, and nondistended. There is no rebound, voluntary guarding, or rigidity. : Deferred. No [place]. EXTREMITIES: Non-edematous and not cyanotic. No clubbing. Good capillary refill. SKIN: No skin breakdown. Vital Signs (last 8hr) Date Time Temp Pulse Resp B/P (MAP) Pulse Ox O2 Delivery O2 Flow Rate FiO2 08/15/24 07:59 99.3 101 17 124/61 93 Nasal Cannula 2.0 08/15/24 07:27 95 18 N/A Room Air 21 08/15/24 07:20 95 18 08/15/24 04:12 98.8 108 18 127/65 93 Nasal Cannula LABS: Laboratory: Test 08/15/24 05:10 08/15/24 05:07 08/14/24 13:16 08/14/24 09:15 Range/Units White Blood Count 14.8 H 4.8-10.8 K/uL Red Blood Count 3.67 L 4.00-5.50 MIL/uL Hemoglobin 11.0 L 12.0-16.0 g/dL Hematocrit 31.8 L 36-48 % Mean Corpuscular Volume 86.6 79-99 fL Mean Corpuscular Hemoglobin 30.0 27.0-33.0 pg Mean Corpuscular Hemoglobin Concent 34.6 32.0-36.0 g/dL Red Cell Distribution Width 12.9 11.0-15.5 % Platelet Count 227 # 130-400 K/uL Mean Platelet Volume 10.4 7.5-10.5 fL Immature Granulocyte % (Auto) 1.6 H 0-1 % Neutrophils (%) (Auto) 83.9 H 40.0-77.0 % Lymphocytes (%) (Auto) 5.9 L 21.0-51.0 % Monocytes (%) (Auto) 8.1 3.0-13.0 % Eosinophils (%) (Auto) 0.3 0.0-8.0 % Basophils (%) (Auto) 0.2 0.0-5.0 % Neutrophils # (Auto) 12.4 H 1.8-7.7 K/uL Lymphocytes # (Auto) 0.9 L 1.0-4.8 K/uL Monocytes # (Auto) 1.2 H 0.1-1.0 K/uL Eosinophils # (Auto) 0.05 0.00-0.70 K/uL Basophils # (Auto) 0.03 0.00-0.20 K/uL Absolute Immature Granulocyte (auto 0.23 0-1 K/uL Nucleated Red Blood Cells 0.0 0.0-0.19 % Sodium Level 138 136-145 mmol/L Potassium Level 3.7 3.5-5.1 mmol/L Chloride Level 104 101-111 mmol/L Carbon Dioxide Level 25 21-32 mmol/L Blood Urea Nitrogen 8 7-18 mg/dL Creatinine 0.6 0.5-1.0 mg/dL Glomerular Filtration Rate Calc 101 >90 mL/min Random Glucose 131 H 70-105 mg/dL Total Calcium 8.3 L 8.5-10.1 mg/dL Phosphorus Level 2.2 L 2.5-4.9 mg/dL Magnesium Level 1.80 1.80-2.40 mg/dL Vancomycin Level Trough 9.4 L 10.0-20.0 UG/ML Whole Blood Glucose 122 H 70-110 MG/DL Blood Gas Specimen Type Arterial Arterial Blood pH 7.500 H 7.350-7.450 Arterial Blood Partial Pressure CO2 31 L 32-45 mmHg Arterial Blood Partial Pressure O2 65.3 L 83.0-108.0 mmHg Arterial Blood HCO3 23.3 21.0-28.0 mmol/L Arterial Blood Oxygen Saturation 94.7 94.0-98.0 % Arterial Blood Base Excess 1.1 -2.0-3.0 mmol/L Blood Gas Temperature 37.0 35.5-37.0 CELSIUS Blood Gas Vent Mode RA ROOM AIR FiO2 21.0 % Blood Gas Specimen Comment RR RA Group A Streptococcus Rapid negative NEGATIVE Test 08/14/24 03:05 08/13/24 11:41 Range/Units Total Bilirubin 1.0 0.2-1.0 mg/dL Aspartate Amino Transf (AST/SGOT) 23 10-37 U/L Alanine Aminotransferase (ALT/SGPT) 42 12-78 U/L Alkaline Phosphatase 117 50-136 U/L Total Protein 6.5 6.0-8.3 g/dL Albumin 2.1 L 3.5-5.0 g/dL HIV (1&2) Antibody Non-Reactive Negative HIV P24 Antigen, Qualitative Non-Reactive Negative Iron Level 11 L 50-170 mcg/dL Total Iron Binding Capacity 165 L 250-450 mcg/dL Percent Iron Saturation 6.6 L 22-44 % Current Medications Medications (Trade) Dose Ordered Sig/Moe Route PRN Reason Start Time Stop Time Status Last Admin Dose Admin Acetaminophen (TYLenol 325MG TAB) 650 mg Q6H PRN PO TEMPERATURE GREATER THAN 101.5 08/12/24 21:30 09/11/24 21:29 08/14/24 09:13 650 MG Albuterol (DUOneb) 1 UDVIAL [id number] IH 08/13/24 00:00 09/12/24 00:00 08/14/24 23:31 1 UDVIAL Atorvastatin Calcium (LIPItor 20MG) 20 mg HS PO 08/14/24 21:00 09/13/24 20:59 08/14/24 20:31 20 MG Azithromycin 250 ml @ 250 mls/hr Q24H IVPB 08/12/24 20:00 08/12/24 21:46 DC 08/12/24 20:50 250 MLS/HR Ceftriaxone Sodium (ROCEphine 1G INJ) 1 gm Q24H IVPB 08/13/24 18:30 08/23/24 18:29 08/14/24 17:43 1 GM Doxycycline Hyclate 250 ml @ 125 mls/hr Q12H IV 08/13/24 08:00 08/23/24 07:59 08/15/24 09:45 125 MLS/HR Enoxaparin Sodium (Lovenox) 40 mg DAILY SQ 08/13/24 09:00 09/12/24 08:59 08/15/24 09:45 40 MG Famotidine (Pepcid 20mg Tab) 20 mg DAILY PO 08/13/24 09:00 08/13/24 11:20 DC 08/13/24 10:51 20 MG Guaifenesin (RobiTUSSin SUGAR-FREE 100 MG/ 5 ML UDCUP) 400 mg Q4H PRN PO cough 08/12/24 21:30 09/11/24 21:29 08/14/24 09:13 400 MG Hydralazine HCl (APRESOLine 20MG INJ) 5 mg Q6H PRN IV For:SBP above 160;DBP above 90 08/13/24 15:30 09/12/24 15:29 Hydralazine HCl (APRESOLine 20MG INJ) 10 mg Q6H PRN IV For:SBP above 160;DBP above 90 08/12/24 21:30 2/8/25 11:12 DC Insulin Human Regular (humuLIN R 100 UNIT/ML 3ML) INSULIN SLIDING SCAL... ACHS SQ 08/13/24 07:30 09/12/24 07:29 08/14/24 12:34 2 UNIT Losartan Potassium (CozAAR 50 mg TAB) 50 mg DAILY PO 08/14/24 09:00 09/13/24 08:59 08/15/24 09:44 50 MG Magnesium Sulfate 50 ml @ 0 mls/hr PROTOCOL PRN IV H 08/12/24 21:30 08/13/24 11:30 DC 08/13/24 01:15 25 MLS/HR Magnesium Sulfate 50 ml @ 0 mls/hr PROTOCOL PRN IV hypomagnesemia 08/13/24 11:30 08/13/24 11:31 DC Magnesium Sulfate 50 ml @ 0 mls/hr PROTOCOL PRN IV hypomagnesemia 08/13/24 11:30 09/12/24 11:29 Montelukast Sodium (SinguLAIR) 10 mg HS PO 08/13/24 21:00 09/12/24 20:59 08/14/24 20:31 10 MG Morphine Sulfate (morPHINE 2MG SYG) 2 mg Q4H PRN IVP SEVERE PAIN (7-10) 08/12/24 21:30 08/19/24 21:29 Ondansetron HCl (zoFRAN 4MG INJ) 4 mg Q6H PRN IV NAUSEA/VOMITING 08/12/24 21:30 09/11/24 21:29 Pantoprazole Sodium (PROTonix 40MG TAB) 40 mg DAILY PO 08/14/24 09:00 09/13/24 08:59 08/15/24 09:44 40 MG Potassium Chloride 100 ml @ 100 mls/hr AD PRN IV POTASSIUM PROTOCOL 08/12/24 21:30 09/11/24 21:29 Potassium Chloride (K-Dur/Klor-Con 20meq) 20 meq AD PRN PO POTASSIUM PROTOCOL 08/12/24 21:30 09/11/24 21:29 08/14/24 09:04 20 MEQ Potassium Chloride (KCl 10% Elixir 20meq/15ml) 20 meq AD PRN PO POTASSIUM PROTOCOL 08/12/24 21:30 09/11/24 21:29 08/13/24 10:53 20 MEQ Vancomycin HCl 250 ml @ 125 mls/hr Q12H IV 08/15/24 06:30 08/25/24 06:29 08/15/24 06:33 125 MLS/HR Vancomycin HCl 250 ml @ 125 mls/hr Q12H IV 08/14/24 06:00 08/15/24 06:18 DC 08/15/24 06:00 125 MLS/HR Vancomycin HCl (Vancomycin Protocol) 1 each AD IV 08/13/24 15:30 08/27/24 15:29 DIAGNOSTICS / RADIOLOGY: [ ] ASSESSMENT: Pneumonia, POA Gram positive bacteremia, MRSA UTI, MRSA Uncontrolled Diabetes mellitius type2, last A1C 6.1 POA Hypokalemia, POA Hypomagnesemia, POA Leukocytosis, POA Asthma Hyperlipidemia PLAN: Continue Vancomycin and ceftriaxone Continue atorvastatin 20mg HS Continue Losartan 50mg q24h Continue doxycycline Continue sliding scale Pulmonology recommending 7 days antibiotics before repeating CT Chest Will order CT abdomen/pelvis to assess for primary malignancy Echo ordered to assess for endocarditis Infectious disease consulted for antibiotics stewardship Disposition: Pending antibiotics, ct abdomen/pelvis, repeat CT chest, ID recommendations PAUL SENA MD Aug 15, 2024 10:26
--- NOTE | 2024-08-15 12:10 | CONS ---
INFECTIOUS DISEASE CONSULTATION NOTE DATE OF SERVICE: 08/14/2024 REQUESTING PHYSICIAN: Dr. Ministerio Wang. REASON FOR CONSULTATION: Pneumonia and bacteremia. HISTORY OF PRESENT ILLNESS: This is a 64-year-old female with history of diabetes mellitus, hypertension, who presented to hospital with cough and shortness of breath. Cough is dry. The patient claims she has had cough for almost a month but got worse in the last one week. The patient denies fever. with WBC of 19,000. Sputum culture growing Staphylococcus aureus. Blood culture growing gram-positive cocci. The patient was started on vancomycin and cefepime. No dysuria or urinary frequency. PAST MEDICAL HISTORY: * Diabetes mellitus. * Hypertension. * Dyslipidemia. * Asthma. PAST SURGICAL HISTORY: * section. * Hysterectomy. ALLERGIES: No known drug allergy. CURRENT MEDICATIONS: Reviewed. SOCIAL HISTORY: Lives with her . No alcohol, tobacco or illicit drug use. FAMILY HISTORY: Positive for diabetes mellitus. REVIEW OF SYSTEMS: CONSTITUTIONAL: Positive for fever, chills. No weight loss or night sweats. EYES: No eye pain. No photophobia or diplopia. HENT: No sore throat. No rhinorrhea or earache. NECK: No neck pain or neck swelling. RESPIRATORY: Positive for cough. No hemoptysis or pleuritic pain. CARDIOVASCULAR: No chest pain. No palpitations or orthopnea. GASTROINTESTINAL: Denied nausea, vomiting. No abdominal pain. GENITOURINARY: No dysuria, urgency or urinary frequency. CENTRAL NERVOUS SYSTEM: No headache, dyspnea or slurred speech. PSYCHIATRY: No depression. No suicidal ideation. MUSCULOSKELETAL: No joint pain. No joint swelling. PHYSICAL EXAMINATION: GENERAL: Elderly female, awake. VITAL SIGNS: Temperature 98.1, pulse 95, respirations 16 and BP 130/60. EYES: No icterus. Pupils are equal and reactive. HENT: No oral thrush seen. Moist oral mucosa. BACK: Supple. No JVD or thyromegaly. LUNGS: Good air entry. Crackles bilaterally. CARDIOVASCULAR: S1, S2 regular. No murmur heard. ABDOMEN: Full. Soft. Nontender. Bowel sounds are present. CENTRAL NERVOUS SYSTEM: Awake, alert, oriented x 3. No focal deficits. SKIN: No rashes. No itchiness. LYMPHATIC: No peripheral lymphadenopathy. BACK: No deformity. No pressure ulcer. LABORATORY DATA: Sodium 137, potassium 3.8, BUN 12, creatinine 0.7. WBC 17.4, hemoglobin 11.0, platelets 181. Influenza antigen negative. COVID antigen negative. Sputum growing Staphylococcus aureus. Blood culture growing gram-positive cocci. RADIOLOGY: CT chest showed bilateral infiltrate. ASSESSMENT: The patient is a 64-year-old female presenting with fever and cough. CURRENT PROBLEMS: Include: * Gram-positive bacteremia with sepsis. * Pneumonia with Staphylococcus aureus. * Diabetes mellitus. * Hypertension. * Leukocytosis. * History of asthma. PLAN: * Continue cefepime. * Continue vancomycin. * Echocardiogram. * Continue antihypertensive. * Continue antidiabetic. * Monitor electrolytes. * The patient will have antibiotic adjusted once culture is updated or finalized. Thank you for allowing me to participate in the care of this patient. TID: [id number] RECEIPT: [id number]
[2024-08-15 12:32] LABS: HEPATITIS C ANTIBODY Non-Reactive (Nonreactive)
[2024-08-15 13:20] LABS: HEPATITIS B CORE AB TOTAL Non-Reactive (Nonreactive)
--- NOTE | 2024-08-15 14:41 | PN ---
[facility] PROGRESS NOTE Date Patient Seen: Aug 15, 2024 Time of Visit: 14:41 Supervising Physician: [Dr. Cruz] Primary Care Physician: [Dr. Avalos] Outpatient Specialists: [ ] Inpatient Consults: [BIS] PROBLEM LIST: Sepsis without septic shock secondary to MRSA pneumonia, POA MRSA bacteremia, 2/2 pending repeat blood culture MRSA pneumonia, POA Acute hypoxemic respiratory failure, POA, improved Uncontrolled Diabetes mellitius type2 Hypokalemia, POA Hypomagnesemia, POA Asthma Hyperlipidemia Plan: Continue broad-spectrum antibiotics Follow cultures, tailor antibiotics as indicated Order baseline ABG Follow Legionella and mycoplasma studies Continue Nebulizer treatments as needed Supplemental oxygen as needed, wean off as tolerated Recommend treating the underlying pneumonia and repeating CT in 7-10 days for reevaluation Further management per primary Disposition per primary INTERVAL HISTORY: [Patient is evaluated at bedside. She continues with productive cough. No current respiratory distress on room air. Her ABG showed mild respiratory alkalosis and patient was placed on nasal cannula 2 L NC for comfort. WBC downtrended to 17. Legionella and mycoplasma labs pending. Gram positive 2/2 in the blood, ID consulted.] 08/15 patient is evaluated at bedside. She is resting comfortably in bed. She is currently on 2 L NC, saturating well. Her blood cultures positive for MRSA, sputum culture also positive for MRSA. Continues on vancomycin, cefepime and doxycycline. She is pending repeat blood cultures and an echocardiogram to rule out endocarditis. Her WBC remains elevated, we will continue to monitor labs and response to treatment. REVIEW OF SYSTEMS: 12 point ROS reviewed with patient. Pertinent positives mentioned above. Otherwise negative. PHYSICAL EXAM: GENERAL: alert, weak, awake oriented x 3 HEENT: EOMI, Sclera non icteric, moist mucosa NECK: Supple, no JVD, trachea midline LUNGS: Clear breath sounds bilaterally. No wheezes HEART: Regular rate and rhythm. Normal S1 and S2, without murmurs ABD: Abdomen soft, nontender. Bowel sounds present EXT: No clubbing cyanosis or edema NEURO: Alert and oriented to person, follows commands Vital Signs (last 8hr) Date Time Temp Pulse Resp B/P (MAP) Pulse Ox O2 Delivery O2 Flow Rate FiO2 08/15/24 08:00 93 Nasal Cannula* 2 28 08/15/24 07:59 99.3 101 17 124/61 93 Nasal Cannula 2.0 08/15/24 07:27 95 18 N/A Room Air 21 08/15/24 07:20 95 18 LABS: Hematology Labs: Test 08/15/24 05:10 Range/Units White Blood Count 14.8 H 4.8-10.8 K/uL Red Blood Count 3.67 L 4.00-5.50 MIL/uL Hemoglobin 11.0 L 12.0-16.0 g/dL Hematocrit 31.8 L 36-48 % Mean Corpuscular Volume 86.6 79-99 fL Mean Corpuscular Hemoglobin 30.0 27.0-33.0 pg Mean Corpuscular Hemoglobin Concent 34.6 32.0-36.0 g/dL Red Cell Distribution Width 12.9 11.0-15.5 % Platelet Count 227 # 130-400 K/uL Mean Platelet Volume 10.4 7.5-10.5 fL Immature Granulocyte % (Auto) 1.6 H 0-1 % Neutrophils (%) (Auto) 83.9 H 40.0-77.0 % Lymphocytes (%) (Auto) 5.9 L 21.0-51.0 % Monocytes (%) (Auto) 8.1 3.0-13.0 % Eosinophils (%) (Auto) 0.3 0.0-8.0 % Basophils (%) (Auto) 0.2 0.0-5.0 % Neutrophils # (Auto) 12.4 H 1.8-7.7 K/uL Lymphocytes # (Auto) 0.9 L 1.0-4.8 K/uL Monocytes # (Auto) 1.2 H 0.1-1.0 K/uL Eosinophils # (Auto) 0.05 0.00-0.70 K/uL Basophils # (Auto) 0.03 0.00-0.20 K/uL Absolute Immature Granulocyte (auto 0.23 0-1 K/uL Nucleated Red Blood Cells 0.0 0.0-0.19 % Chemistry Labs: Test 08/15/24 11:30 08/15/24 05:10 08/14/24 03:05 Range/Units Whole Blood Glucose 189 #H 70-110 MG/DL Sodium Level 138 136-145 mmol/L Potassium Level 3.7 3.5-5.1 mmol/L Chloride Level 104 101-111 mmol/L Carbon Dioxide Level 25 21-32 mmol/L Blood Urea Nitrogen 8 7-18 mg/dL Creatinine 0.6 0.5-1.0 mg/dL Glomerular Filtration Rate Calc 101 >90 mL/min Random Glucose 131 H 70-105 mg/dL Total Calcium 8.3 L 8.5-10.1 mg/dL Phosphorus Level 2.2 L 2.5-4.9 mg/dL Magnesium Level 1.80 1.80-2.40 mg/dL Total Bilirubin 1.0 0.2-1.0 mg/dL Aspartate Amino Transf (AST/SGOT) 23 10-37 U/L Alanine Aminotransferase (ALT/SGPT) 42 12-78 U/L Alkaline Phosphatase 117 50-136 U/L Total Protein 6.5 6.0-8.3 g/dL Albumin 2.1 L 3.5-5.0 g/dL DIAGNOSTICS / RADIOLOGY RESULTS: [Reviewed] PLAN NEURO: Minimize central acting medications as possible. Maintain fall precautions, adequate lighting during the day PULMONARY: Supplemental 02 as needed. Maintain aspiration precautions at all times CARDIOVASCULAR: Follow hemodynamics. Vital signs per facility protocol GI & NUTRITION: Continue with nutritional support. Continue stool softeners and laxatives as needed. KIDNEYS & ELECTROLYTES: Strict monitoring of intake, output and overall fluid balance. Avoid nephrotoxic medications to the extent possible. Medications to be dosed according to renal function. Monitor electrolytes and replace as needed ENDOCRINE: Maintain blood glucose between 100-180 at all times. Hypoglycemia protocol in place INFECTIOUS DISEASE: Trend temperature, WBC and procalcitonin level Follow cultures, deescalate antibiotics as soon as possible. Panculture if new onset fever ONCOLOGY/HEMATOLOGY/COAGULATION: Monitor for s/s of bleeding Monitor hemoglobin, coagulation studies as needed SKIN: Pressure ulcer prevention per facility protocol Specialty mattress ORTHO/REHAB: Continue PT/OT Prophylaxis: Continue GI and DVT prophylaxis Code Status: Full Resuscitation Disposition: TBD Other: Total patient care time exceeds 35 minutes excluding all procedures. HENRI LAY Aug 15, 2024 14:41
--- NOTE | 2024-08-15 14:56 | HMCSR ---
APPROVED REPORT EXAM: Two-dimensional and M-mode echocardiogram with Doppler and color Doppler. INDICATION ICD: Gram positive rule out endocarditis 2D Dimensions RVDd3.7 cmLVEF(%)65.6 (>50%)LVED Vol(simp.)62.0 mL IVSd1.0 (0.7-1.1cm)FS(%)36 %LVES Vol(simp.)20.0 mL LVDd4.2 (3.8-5.6cm)LA (2D)3.6 (1.6-4.0cm)LVEF(%, simp.)68 % PWd0.8 (0.7-1.1cm)Ao Root(2D)2.7 (2.0-3.7cm)LA ESV INDEX (4CH)28.60 mL/m2 IVSs1.1 cmLVOT diam1.9 (1.8-2.4cm)LA ESV INDEX (2CH)24.10 mL/m2 LVDs2.7 (2.5-4.0cm)IVC diam1.5 cmLA ESV INDEX (BP)27.30 mL/m2 PWs1.2 cm Deformation Strain Apical 4-17.0 % Apical 2-24.0 % Apical 3-15.0 % Global Strain-19.0 % M-Mode Dimensions EPSS0.8 cm LA (MM)4.2 (1.6-4.0cm) Ao Root(MM)2.4 (2.0-3.7cm) Aortic Valve AoV VTI0.3 mAo Mean GR7.0 mmHgLVOT VTI0.25 m EDER (VMAX)2.4 cm2AVA (VTI) 2.4 cm2 Mitral Valve MV E Vmax76.5 cm/sDECEL Bsam883 ms MV A Vmax71.6 cm/sP 1/2 T59 ms E/A ratio1.1MVA (PHT)3.7 cm2 TDI E/E' Nurkys11.5E/E' Lateral6.5 Medial E' Peak V6.10 cm/sLateral E' Peak V11.70 cm/s Pulmonary Valve PV VTI0.22 mPV Mean GR3 mmHg Tricuspid Valve TR Vmax2.4 m/sRAP (EST) 3 mrThBEMJ06.0 mmHg TR Peak GR23.0 mmHg Left Ventricle The left ventricle is normal size. No regional wall motion abnormalities noted. There is normal left ventricular wall thickness. LVEF is 65-70%. The left ventricular diastolic function is normal. Right Ventricle The right ventricle is normal size. The right ventricular systolic function is normal. Atria The left atrium size is normal. The right atrium size is normal. Aortic Valve The aortic valve is normal in structure. No aortic regurgitation is present. No aortic valvular veget ation noted. There is no aortic valvular stenosis. Mitral Valve The mitral valve is normal in structure. There is trace of mitral valve regurgitation noted. No alana l valve vegetation noted. There is no mitral valve stenosis. Tricuspid Valve The tricuspid valve is normal in structure. There is no tricuspid valve regurgitation noted. No tricu spid valve vegetation. Pulmonic Valve The pulmonary valve is normal in structure. There is no pulmonic valvular regurgitation. Great Vessels The aortic root is normal in size. The IVC is normal in size and collapses >50% with inspiration. Pericardium There is no pericardial effusion. Other Information Quality : Adequate Conclusion LVEF is 65-70%. No regional wall motion abnormalities noted. The left ventricular diastolic function is normal.
--- NOTE | 2024-08-15 16:27 | PN ---
INFECTIOUS DISEASE PROGRESS NOTE Date of Service: Aug 15, 2024 SUBJECTIVE: This is a 64-year-old female patient with past medical history of asthma or was admitted to the hospital for chief complaint of worsening cough. A chest x-ray done on admission showed large right lung infiltrates. A CT of the chest showed Bilateral consolidative infiltrates with pathologic size mediastinal lymphadenopathy. Patient was seen and examined at bedside in room 430. Patient is awake, alert and oriented x 3. Patient is having dyspneic episode on exertion. Continues on oxygen via nasal cannula at 2 liters/minute. The final blood cultures and sputum culture results came back positive for methicillin-re sistant Staphylococcus aureus. Patient was updated with these findings. Patient is pending a 2D echo to rule out vegetation. We will repeat blood cultures. We will continue vancomycin, ceftriaxone and doxycycline. Patient's temperature is 99.3. WBC continues trending down and is 14.8 today. We will continue to follow patient's care. PHYSICAL EXAM EYES: Anicteric. Pupils equal and reactive. HENT: No oral thrush seen, moist Oral mucosa. NECK: Supple, no JVD or thyromegaly. RESPIRATORY: Good air entry. Wheezing/crackles. Oxygen support. CARDIOVASCULAR: S1, S2 regular. No murmur heard. ABDOMEN: Soft, non tender, bowel sounds present, no organomegaly CENTRAL NERVOUS SYSTEM: Awake, alert, oriented x 3. No focal deficits. SKIN: No rashes, no swelling. LYMPHATICS: No peripheral lymphadenopathy. MUSCULOSKELETAL: No joint swelling, erythema or tenderness. EXTREMITIES: No cyanosis or clubbing BACK: No deformity, no pressure ulcer. GENITOURINARY: No dysuria or hematuria. Vital Sign (Last 12 Hours) 08/15/24 08/15/24 08/15/24 08/15/24 07:20 07:27 07:59 08:00 Temp 99.3 Pulse 95 95 101 Resp 18 18 17 B/P (MAP) 124/61 Pulse Ox 93 93 O2 Delivery N/A Room Air Nasal Cannula Nasal Cannula* O2 Flow Rate 2.0 2 FiO2 21 28 Intake & Output (last 24hrs) 08/14/24 08/14/24 08/15/24 15:00 23:00 07:00 Intake Total 250.0 ml Balance 250.0 ml LABS: Laboratory: Test 08/15/24 15:35 08/15/24 05:10 08/14/24 13:16 08/14/24 09:15 Range/Units Whole Blood Glucose 134 H 70-110 MG/DL White Blood Count 14.8 H 4.8-10.8 K/uL Red Blood Count 3.67 L 4.00-5.50 MIL/uL Hemoglobin 11.0 L 12.0-16.0 g/dL Hematocrit 31.8 L 36-48 % Mean Corpuscular Volume 86.6 79-99 fL Mean Corpuscular Hemoglobin 30.0 27.0-33.0 pg Mean Corpuscular Hemoglobin Concent 34.6 32.0-36.0 g/dL Red Cell Distribution Width 12.9 11.0-15.5 % Platelet Count 227 # 130-400 K/uL Mean Platelet Volume 10.4 7.5-10.5 fL Immature Granulocyte % (Auto) 1.6 H 0-1 % Neutrophils (%) (Auto) 83.9 H 40.0-77.0 % Lymphocytes (%) (Auto) 5.9 L 21.0-51.0 % Monocytes (%) (Auto) 8.1 3.0-13.0 % Eosinophils (%) (Auto) 0.3 0.0-8.0 % Basophils (%) (Auto) 0.2 0.0-5.0 % Neutrophils # (Auto) 12.4 H 1.8-7.7 K/uL Lymphocytes # (Auto) 0.9 L 1.0-4.8 K/uL Monocytes # (Auto) 1.2 H 0.1-1.0 K/uL Eosinophils # (Auto) 0.05 0.00-0.70 K/uL Basophils # (Auto) 0.03 0.00-0.20 K/uL Absolute Immature Granulocyte (auto 0.23 0-1 K/uL Nucleated Red Blood Cells 0.0 0.0-0.19 % Sodium Level 138 136-145 mmol/L Potassium Level 3.7 3.5-5.1 mmol/L Chloride Level 104 101-111 mmol/L Carbon Dioxide Level 25 21-32 mmol/L Blood Urea Nitrogen 8 7-18 mg/dL Creatinine 0.6 0.5-1.0 mg/dL Glomerular Filtration Rate Calc 101 >90 mL/min Random Glucose 131 H 70-105 mg/dL Total Calcium 8.3 L 8.5-10.1 mg/dL Phosphorus Level 2.2 L 2.5-4.9 mg/dL Magnesium Level 1.80 1.80-2.40 mg/dL Vancomycin Level Trough 9.4 L 10.0-20.0 UG/ML Blood Gas Specimen Type Arterial Arterial Blood pH 7.500 H 7.350-7.450 Arterial Blood Partial Pressure CO2 31 L 32-45 mmHg Arterial Blood Partial Pressure O2 65.3 L 83.0-108.0 mmHg Arterial Blood HCO3 23.3 21.0-28.0 mmol/L Arterial Blood Oxygen Saturation 94.7 94.0-98.0 % Arterial Blood Base Excess 1.1 -2.0-3.0 mmol/L Blood Gas Temperature 37.0 35.5-37.0 CELSIUS Blood Gas Vent Mode RA ROOM AIR FiO2 21.0 % Blood Gas Specimen Comment RR RA Group A Streptococcus Rapid negative NEGATIVE Test 08/14/24 03:05 Range/Units Total Bilirubin 1.0 0.2-1.0 mg/dL Aspartate Amino Transf (AST/SGOT) 23 10-37 U/L Alanine Aminotransferase (ALT/SGPT) 42 12-78 U/L Alkaline Phosphatase 117 50-136 U/L Total Protein 6.5 6.0-8.3 g/dL Albumin 2.1 L 3.5-5.0 g/dL Hepatitis B Core Total Antibody. Non-Reactive Nonreactive Hepatitis C Antibody Non-Reactive Nonreactive HIV (1&2) Antibody Non-Reactive Negative HIV P24 Antigen, Qualitative Non-Reactive Negative DIAGNOSTICS / RADIOLOGY: PATIENT: XOCHITL CORCORAN ACCT: [id number] LOC: [facility] U: [id number] AGE/SX: 64/F ROOM: 430 RE08/12/[address]: PAUL SENA MD : 1960 BED: 1 DIS: STATUS: ADM IN TLOC: SPEC: [id number] DORA: 08/12/24 STATUS: COMP REQ: [id number] RECD: 08/13/[address] [facility] [address]: TRACI TREJO SOURCE: BLOOD ENTR: 08/13/24-[address] [facility] [address]: JUN[facility]IMS [facility]E PERE[facility] MD ORDERED: AERO ID & SENS COMMENTS: CALLED RESULTS TO DELBERT HORNER SCANNED TO FREDERIC MATHEWS RN Procedure Result Joby Date-Time AEROBIC ID & SENSITIVITIES Final 08/15/24-08 M[facility] METHICILLIN-RESISTANT STAPHYLOCOCCUS AUREUS RESULT WAS CALLED BY CHAYA MOURA ON 08/15/24 AT 0818. CRITICAL VALUES WERE READ BACK AND ACKNOWLEDGED BY MIGUEL A MURILLO ( [facility] ) COLONY DESCRIPTION: DAY 1: GRAM POSITIVE COCCI IN CLUSTERS IDENTIFICATION AND SENSITIVITY TO FOLLOW ANAEROBIC BOTTLE MRSA: NOTE: THIS IS A METHICILLIN-RESISTANT STAPH AUREUS STAPHYLOCOCCUS AUREUS-MRSA MRSA M.I.C. RX --------- ---- CLINDAMYCIN 0.5 S ERYTHROMYCIN <=0.5 S GENTAMICIN <=4 S VANCOMYCIN 1 S OXACILLIN GILMA >2 R RIFAMPIN <=1 S TETRACYCLINE <=4 S TRIMETHOPRIM/SUFLAMETHOXAZOLE <=0.5/9.5 S PATIENT: XOCHITL CORCORAN ACCT: [id number] LOC: [facility] U: [id number] AGE/SX: 64/F ROOM: [facility] RE08/12/[address]: PAUL SENA MD : 1960 BED: 1 DIS: STATUS: ADM IN TLOC: SPEC: [id number] DORA: 08/12/24 STATUS: COMP REQ: [id number] RECD: 08/12/[address]: ANTHONY CAMP SOURCE: SPUTUM ENTR: 08/12/24-[address] [facility] [address]: TONA SADLER NP SPDESC: MAE CRAWFORD MD ORDERED: RESP CULTURE Procedure Result Joby Date-Time GRAM STAIN Final 08/13/24-1244 [facility] GRAM STAIN RESULT: GOOD SPECIMEN [ <10 SEC's/LPF and >25 PMN's/LPF ] RARE GRAM POSITIVE COCCI RARE GRAM NEGATIVE RODS RESPIRATORY CULTURE Final 08/15/24-1022 [facility] METHICILLIN-RESISTANT STAPHYLOCOCCUS AUREUS RESULT WAS CALLED BY CHAYA MOURA ON 08/15/24 AT 0816. CRITICAL VALUES WERE READ BACK AND ACKNOWLEDGED BY MIGUEL A MURILLO ( [facility] ) COLONY DESCRIPTION: REPORT 1: 2+ ORAL TAMMIE ; STUDIES TO CONTINUE 2+ GRAM POSITIVE COCCI IN CLUSTERS STAPHYLOCOCCUS AUREUS SENSITIVITY TO FOLLOW REPORT 2: NO FURTHER WORK-UP DONE MRSA: NOTE: THIS IS A METHICILLIN-RESISTANT STAPH AUREUS STAPHYLOCOCCUS AUREUS-MRSA MRSA M.I.C. RX --------- ---- CLINDAMYCIN 0.5 S ERYTHROMYCIN <=0.5 S GENTAMICIN <=4 S VANCOMYCIN 1 S OXACILLIN GILMA >2 R RIFAMPIN <=1 S TETRACYCLINE <=4 S TRIMETHOPRIM/SUFLAMETHOXAZOLE <=0.5/9.5 S ASSESSMENT: Methicillin-resistant Staphylococcus aureus bacteremia. Pneumonia with methicillin-resistant Staphylococcus aureus. Leukocytosis. History of asthma. Diabetes mellitus. Hypertension. PLAN: Will repeat blood cultures. Patient is pending a 2D echo. Continue vancomycin per pharmacy protocol. Continue ceftriaxone. Continue doxycycline. Continue GI prophylaxis. Continue bronchodilators. Continue oxygen support. We will monitor electrolytes. This case was reviewed and discussed with my supervising physician and the above assessment and plan was formulated and agreed upon. ATTESTATION BY PHYSICIAN I have seen and examined the patient. I reviewed the documentation, medical decision making, and treatment plan as noted by the mid-level provider above. I agree with the findings and plan of care. KAYLIE ALDRICH MD, MIRTA L ASSISTANT PROGRAM DIRECTOR Aug 15, 2024 16:27
[2024-08-16] VITALS (13 sets, daily range): BP systolic 112–140; BP diastolic 56–68; PULSE 86–104; RESP 16–20; TEMP 97.5–99.7; O2SAT 91–95
[2024-08-16 05:28] LABS: BASOPHILS # (AUTO) 0.02 K/uL (0.00-0.20); BASOPHILS % (AUTO) 0.2 % (0.0-5.0); EOSINOPHILS % (AUTO) 1.6 % (0.0-8.0); HEMATOCRIT 32.2 % (36-48); IMMATURE GRANULOCYTE ABSOLUTE 0.24 K/uL (0-1); LYMPHOCYTES # (AUTO) 0.9 K/uL (1.0-4.8); LYMPHOCYTES % (AUTO) 7.1 % (21.0-51.0); MEAN CORPUSCULAR HEMOGLOBIN 29.9 pg (27.0-33.0); MEAN CORPUSCULAR HGB CONC 33.9 g/dL (32.0-36.0); MEAN CORPUSCULAR VOLUME 88.5 fL (79-99); MONOCYTES # (AUTO) 1.1 K/uL (0.1-1.0); MONOCYTES % (AUTO) 9.4 % (3.0-13.0); NEUTROPHILS # (AUTO) 9.7 K/uL (1.8-7.7); NEUTROPHILS % (AUTO) 79.7 % (40.0-77.0); PLATELET COUNT (AUTO) 244 K/uL (130-400); RED BLOOD CELL COUNT(AUTO) 3.64 MIL/uL (4.00-5.50); RED CELL DISTRIBUTION WIDTH 12.8 % (11.0-15.5); WHITE BLOOD COUNT (AUTO) 12.1 K/uL (4.8-10.8)
[2024-08-16 05:45] LABS: CREATININE 0.8 mg/dL (0.5-1.0); POTASSIUM 3.3 mmol/L (3.5-5.1)
[2024-08-16 05:45] LABS: ABG BASE EXCESS 1.5 mmol/L (-2.0-3.0); ABG HCO3 22.8 mmol/L (21.0-28.0); ABG OXYGEN SATURATION 93.6 % (94.0-98.0); ABG PCO2 28 mmHg (32-45); ABG PH 7.534 (7.350-7.450); PO2, ARTERIAL BG 58.9 mmHg (83.0-108.0); VENT MODE, BG RA (ROOM AIR)
--- NOTE | 2024-08-16 08:19 | HMCIMG ---
CHEST 1VW HISTORY: Pneumonia COMPARISON: None FINDINGS: A frontal projection of the chest was obtained. There are bilateral pulmonary infiltrates. Masslike densities are seen with neoplastic process not excluded. Follow-up examination would be helpful. The heart is borderline enlarged. All the lines and tubes are again seen in place. No evidence of aortic calcification is seen. IMPRESSION: 1. Bilateral pulmonary infiltrates predominantly in the right lung with masslike densities. Follow-up examination is recommended.
--- NOTE | 2024-08-16 11:48 | NUR ---
nurse note patient refused insulin at this time, blood glucose checked at bedside after patient finished lunch tray, stated she had just ate and that she did not want insulin at this time.
--- NOTE | 2024-08-16 11:51 | PN ---
[facility] PROGRESS NOTE Date Patient Seen: Aug 16, 2024 Time of Visit: 11:47 Supervising Physician: [Dr Re Ferraro Primary Care Physician: [Dr. Avalos] Outpatient Specialists: [ ] Inpatient Consults: [BIS] PROBLEM LIST: Sepsis without septic shock secondary to MRSA pneumonia, POA MRSA bacteremia, 2/2 pending repeat blood culture MRSA pneumonia, POA Acute hypoxemic respiratory failure, POA, improved Uncontrolled Diabetes mellitius type2 Hypokalemia, POA Hypomagnesemia, POA Asthma Hyperlipidemia Plan Summary: Supplemental oxygen as needed Continue antibiotics per Infectious Disease Repeat blood cultures x2 and follow results Follow Legionella and mycoplasma studies Continue Nebulizer treatments as needed Recommend treating the underlying pneumonia and repeating CT in 7-10 days for r eevaluation Further management per primary Recommend SNF placement for long-term antibiotic treatment Dispo: As per attending INTERVAL HISTORY: [Patient is evaluated at bedside. She continues with productive cough. No current respiratory distress on room air. Her ABG showed mild respiratory alkalosis and patient was placed on nasal cannula 2 L NC for comfort. WBC downtrended to 17. Legionella and mycoplasma labs pending. Gram positive 2/2 in the blood, ID consulted.] 08/15 patient is evaluated at bedside. She is resting comfortably in bed. She is currently on 2 L NC, saturating well. Her blood cultures positive for MRSA, sputum culture also positive for MRSA. Continues on vancomycin, cefepime and doxycycline. She is pending repeat blood cultures and an echocardiogram to rule out endocarditis. Her WBC remains elevated, we will continue to monitor labs and response to treatment. 08/16 - patient is seen and evaluated at the bedside. Patient is sitting up in a chair accompanied by her . Patient does not appear to be in any acute distress at this time. Patient is currently on room air and denies dyspnea. Patient denies chest discomfort or chest pain. No acute changes reported overnight. Patient continues on IV antibiotics as per Infectious Disease for MRSA pneumonia as well as bacteremia. Patient had a 2D echo and results shows normal LVEF of 65-70%. No signs of valvular vegetation noted. Recommend SNF placement for continued IV antibiotics. REVIEW OF SYSTEMS: 12 point ROS reviewed with patient. Pertinent positives mentioned above. Otherwise negative. PHYSICAL EXAM: GENERAL: alert, weak, awake oriented x 3 HEENT: EOMI, Sclera non icteric, moist mucosa NECK: Supple, no JVD, trachea midline LUNGS: Clear breath sounds bilaterally. No wheezes HEART: Regular rate and rhythm. Normal S1 and S2, without murmurs ABD: Abdomen soft, nontender. Bowel sounds present EXT: No clubbing cyanosis or edema NEURO: Alert and oriented to person, follows commands Vital Signs (last 8hr) Date Time Temp Pulse Resp B/P (MAP) Pulse Ox O2 Delivery O2 Flow Rate FiO2 08/16/24 11:18 101 18 08/16/24 11:17 98.2 101 19 129/66 96 Room Air 08/16/24 08:00 95 Room Air* 0 21 08/16/24 07:59 99.7 104 20 127/68 95 Room Air 08/16/24 06:59 98 18 08/16/24 06:48 97 18 N/A Room Air 21 08/16/24 04:00 99.7 95 18 122/57 94 Room Air LABS: Hematology Labs: Test 08/16/24 04:51 Range/Units White Blood Count 12.1 H 4.8-10.8 K/uL Red Blood Count 3.64 L 4.00-5.50 MIL/uL Hemoglobin 10.9 L 12.0-16.0 g/dL Hematocrit 32.2 L 36-48 % Mean Corpuscular Volume 88.5 79-99 fL Mean Corpuscular Hemoglobin 29.9 27.0-33.0 pg Mean Corpuscular Hemoglobin Concent 33.9 32.0-36.0 g/dL Red Cell Distribution Width 12.8 11.0-15.5 % Platelet Count 244 130-400 K/uL Mean Platelet Volume 10.2 7.5-10.5 fL Immature Granulocyte % (Auto) 2.0 H 0-1 % Neutrophils (%) (Auto) 79.7 H 40.0-77.0 % Lymphocytes (%) (Auto) 7.1 L 21.0-51.0 % Monocytes (%) (Auto) 9.4 3.0-13.0 % Eosinophils (%) (Auto) 1.6 0.0-8.0 % Basophils (%) (Auto) 0.2 0.0-5.0 % Neutrophils # (Auto) 9.7 H 1.8-7.7 K/uL Lymphocytes # (Auto) 0.9 L 1.0-4.8 K/uL Monocytes # (Auto) 1.1 H 0.1-1.0 K/uL Eosinophils # (Auto) 0.20 0.00-0.70 K/uL Basophils # (Auto) 0.02 0.00-0.20 K/uL Absolute Immature Granulocyte (auto 0.24 0-1 K/uL Nucleated Red Blood Cells 0.0 0.0-0.19 % Chemistry Labs: Test 08/16/24 05:41 08/16/24 04:51 08/15/24 05:10 Range/Units Whole Blood Glucose 118 H 70-110 MG/DL Sodium Level 137 136-145 mmol/L Potassium Level 3.3 L 3.5-5.1 mmol/L Chloride Level 102 101-111 mmol/L Carbon Dioxide Level 27 21-32 mmol/L Blood Urea Nitrogen 8 7-18 mg/dL Creatinine 0.8 0.5-1.0 mg/dL Glomerular Filtration Rate Calc 83 >90 mL/min Random Glucose 125 H 70-105 mg/dL Total Calcium 8.4 L 8.5-10.1 mg/dL Phosphorus Level 2.2 L 2.5-4.9 mg/dL Magnesium Level 1.80 1.80-2.40 mg/dL DIAGNOSTICS / RADIOLOGY RESULTS: [ ] PLAN NEURO: Minimize central acting medications as possible. Maintain fall precautions, adequate lighting during the day PULMONARY: Supplemental 02 as needed. Maintain aspiration precautions at all times CARDIOVASCULAR: Follow hemodynamics. Vital signs per facility protocol GI & NUTRITION: Continue with nutritional support. Continue stool softeners and laxatives as needed. KIDNEYS & ELECTROLYTES: Strict monitoring of intake, output and overall fluid balance. Avoid nephrotoxic medications to the extent possible. Medications to be dosed according to renal function. Monitor electrolytes and replace as needed ENDOCRINE: Maintain blood glucose between 100-180 at all times. Hypoglycemia protocol in place INFECTIOUS DISEASE: Trend temperature, WBC and procalcitonin level Follow cultures, deescalate antibiotics as soon as possible. Panculture if new onset fever ONCOLOGY/HEMATOLOGY/COAGULATION: Monitor for s/s of bleeding Monitor hemoglobin, coagulation studies as needed SKIN: Pressure ulcer prevention per facility protocol Specialty mattress ORTHO/REHAB: Continue PT/OT Prophylaxis: Continue GI and DVT prophylaxis Code Status: Full Resuscitation Disposition: As per attending Other: Total patient care time exceeds 35 minutes excluding all procedures. ATTESTATION BY PHYSICIAN The patient has been seen and evaluated, the case has been discussed with the INFORMATICIST, I agree with the clinical findings and plan of care. Zackery Ferraro MD, ECTOR N INFORMATICIST Aug 16, 2024 11:51
--- NOTE | 2024-08-16 13:01 | PN ---
[facility] PROGRESS NOTE Date of Service: Aug 16, 2024 Time of Service: 12:50 SUBJECTIVE: This is a 64-year-old female, presented to the emergency room with a chief complaint of cough productive of brownish phlegm with the associated shortness of breath. Chest x-ray showed large right lung infiltrate. 08/13 patient is seen and examined at bedside, case discussed with the RN, no acute events overnight. During my visit the patient comfortable in bed, alert oriented x3, following commands, admits cough productive brownish phlegm, right- sided pleuritic chest pain. BP 97/53, spiked fever last night, she is saturating 96% on 2 L via nasal cannula. WBC remains elevated at 17.8. Potassium 3.3. Hemoglobin A1c 6.1. Procalcitonin mildly elevated 0.98. Appearance of the UA cloudy. Small occult blood. Serology to include influenza type a and B negative. SARS antigen negative. Chest x-ray shows large right lung infiltrate. 08/14 patient seen at bedside, no acute events overnight. There is a concern for underlying malignancy given the lesions noted in the patient's lungs. Discussed case with pulmonology who recommends a total of seven days of antibiotics before repeating CT imaging of the chest. If lesions are still notable may need a biopsy. She has been afebrile, hemodynamically stable saturating well on room air. WBC improved from 17.8 down to 17.4, hemoglobin improved from 11.3 up to 11.8, remainder of her labs are relatively unremarkable. Blood cultures positive 2/2 bottles for Gram-positive organism, infectious Disease has been consulted for further recommendations. 08/15 patient seen at bedside, no acute events overnight. She has been afebrile, hemodynamically stable saturating well on 2 L nasal cannula, we will wean as able. WBC improved from 17.4 down to 14.8, hemoglobin decreased from 11.8 down to 11.0, remainder of her labs are relatively unremarkable. Sputum and blood growing MRSA, infectious Disease recommendations pending, we will follow up. Echocardiogram has been ordered to rule out endocarditis. 08/16 patient seen at bedside, no acute events overnight. Repeat chest CT pending tomorrow to evaluate improvement in lung lesions. Will follow up with pulmonology recommendations after study to determine if patient needs continued antibiotic therapy vs biopsy to r/o malignancy. Repeat blood cultures are no growth to date REVIEW OF SYSTEMS CONSTITUTIONAL: Denies fevers, chills, or night sweats. No unintentional weight loss reported. NEUROLOGICAL: Denies headache, amaurosis fugax, motor weakness, sensory deficit, vertigo/spinning sensation, gait abnormalities, or tremors. ENT: No hearing loss, otalgia, otorrhea, rhinitis, rhinorrhea, hoarseness, or sore throat. CARDIOVASCULAR: Denies any exertional angina, dyspnea on exertion, orthopnea, paroxysmal nocturnal dyspnea, palpitations, life-threatening arrhythmias, claudication. PULMONARY: Denies any shortness of breath, cough, phlegm/sputum, hemoptysis, pleuritic chest pain. SLEEP: Denies morning headaches, daytime somnolence or napping. Denies difficulty falling asleep, staying asleep, waking from sleep. Denies knowledge of snoring. GASTROINTESTINAL: Denies any type of dysphagia to either liquids or solids. Denies nausea, vomiting, pyrosis, early satiety, abdominal pain, diarrhea, constipation, or changes in stool consistency or caliber. Denies coffee-ground emesis, hematemesis, hematochezia, or melanotic stools. GENITOURINARY: Denies frequency, urgency, nocturia, hematuria or incontinence (Storage/Irritative symptoms.) Low urinary stream, straining to void, urinary intermittency or hesitancy, splitting of the voiding stream, terminal dribbling. ENDOCRINOLOGIC: Denies polyuria, polydipsia, polyphagia or heat/cold intolerances. HEMATOLOGIC: Denies thrombophilia/previous clots, or coagulopathy/bleeding disorders. ONCOLOGIC: Denies personal history of malignancy. DERMATOLOGIC: Denies rashes or pruritus. PSYCHIATRIC: Denies any suicidal or homicidal ideation. Denies hallucinations. PHYSICAL EXAM GENERAL APPEARANCE: The patient is awake, alert, and oriented, in no acute cardiopulmonary distress. NEUROLOGICAL: Cranial nerves II-XII grossly intact. Motor is 5/5 in bilateral upper and lower extremities proximal to distal. No sensory deficits. HEENT: Face is symmetric. Pupils are equal and reactive. Extraocular movements are intact. NECK: Supple. No JVD. No thyromegaly. No submental, submandibular, pre-/postauricular, occipital or supraclavicular lymphadenopathy. CHEST: Normal chest expansion. No Telemetry. LUNGS: Absence of any rales, rhonchi or any wheezing. CARDIOVASCULAR: Regular. S1 and S2 normal. No appreciable rubs, murmurs or gallops. ABDOMEN: Soft, nontender, and nondistended. There is no rebound, voluntary guarding, or rigidity. : Deferred. No [place]. EXTREMITIES: Non-edematous and not cyanotic. No clubbing. Good capillary refill. SKIN: No skin breakdown. Vital Signs (last 8hr) Date Time Temp Pulse Resp B/P (MAP) Pulse Ox O2 Delivery O2 Flow Rate FiO2 08/16/24 11:18 101 18 08/16/24 11:17 98.2 101 19 129/66 96 Room Air 08/16/24 08:00 95 Room Air* 0 21 08/16/24 07:59 99.7 104 20 127/68 95 Room Air 08/16/24 06:59 98 18 08/16/24 06:48 97 18 N/A Room Air 21 LABS: Laboratory: Test 08/16/24 11:45 08/16/24 05:43 08/16/24 04:51 08/15/24 05:10 Range/Units Whole Blood Glucose 239 #H 70-110 MG/DL Blood Gas Specimen Type Arterial Arterial Blood pH 7.534 H 7.350-7.450 Arterial Blood Partial Pressure CO2 28 L 32-45 mmHg Arterial Blood Partial Pressure O2 58.9 L 83.0-108.0 mmHg Arterial Blood HCO3 22.8 21.0-28.0 mmol/L Arterial Blood Oxygen Saturation 93.6 L 94.0-98.0 % Arterial Blood Base Excess 1.5 -2.0-3.0 mmol/L Blood Gas Temperature 37.0 35.5-37.0 CELSIUS Blood Gas Vent Mode RA ROOM AIR FiO2 21.0 % Blood Gas Specimen Comment RR,RN White Blood Count 12.1 H 4.8-10.8 K/uL Red Blood Count 3.64 L 4.00-5.50 MIL/uL Hemoglobin 10.9 L 12.0-16.0 g/dL Hematocrit 32.2 L 36-48 % Mean Corpuscular Volume 88.5 79-99 fL Mean Corpuscular Hemoglobin 29.9 27.0-33.0 pg Mean Corpuscular Hemoglobin Concent 33.9 32.0-36.0 g/dL Red Cell Distribution Width 12.8 11.0-15.5 % Platelet Count 244 130-400 K/uL Mean Platelet Volume 10.2 7.5-10.5 fL Immature Granulocyte % (Auto) 2.0 H 0-1 % Neutrophils (%) (Auto) 79.7 H 40.0-77.0 % Lymphocytes (%) (Auto) 7.1 L 21.0-51.0 % Monocytes (%) (Auto) 9.4 3.0-13.0 % Eosinophils (%) (Auto) 1.6 0.0-8.0 % Basophils (%) (Auto) 0.2 0.0-5.0 % Neutrophils # (Auto) 9.7 H 1.8-7.7 K/uL Lymphocytes # (Auto) 0.9 L 1.0-4.8 K/uL Monocytes # (Auto) 1.1 H 0.1-1.0 K/uL Eosinophils # (Auto) 0.20 0.00-0.70 K/uL Basophils # (Auto) 0.02 0.00-0.20 K/uL Absolute Immature Granulocyte (auto 0.24 0-1 K/uL Nucleated Red Blood Cells 0.0 0.0-0.19 % Sodium Level 137 136-145 mmol/L Potassium Level 3.3 L 3.5-5.1 mmol/L Chloride Level 102 101-111 mmol/L Carbon Dioxide Level 27 21-32 mmol/L Blood Urea Nitrogen 8 7-18 mg/dL Creatinine 0.8 0.5-1.0 mg/dL Glomerular Filtration Rate Calc 83 >90 mL/min Random Glucose 125 H 70-105 mg/dL Total Calcium 8.4 L 8.5-10.1 mg/dL Phosphorus Level 2.2 L 2.5-4.9 mg/dL Magnesium Level 1.80 1.80-2.40 mg/dL Vancomycin Level Trough 9.4 L 10.0-20.0 UG/ML Current Medications Medications (Trade) Dose Ordered Sig/Moe Route PRN Reason Start Time Stop Time Status Last Admin Dose Admin Acetaminophen (TYLenol 325MG TAB) 650 mg Q6H PRN PO TEMPERATURE GREATER THAN 101.5 08/12/24 21:30 09/11/24 21:29 08/15/24 19:55 650 MG Albuterol (DUOneb) 1 UDVIAL [id number] IH 08/13/24 00:00 09/12/24 00:00 08/16/24 11:16 1 UDVIAL Atorvastatin Calcium (LIPItor 20MG) 20 mg HS PO 08/14/24 21:00 09/13/24 20:59 08/15/24 21:00 20 MG Azithromycin 250 ml @ 250 mls/hr Q24H IVPB 08/12/24 20:00 08/12/24 21:46 DC 08/12/24 20:50 250 MLS/HR Ceftriaxone Sodium (ROCEphine 1G INJ) 1 gm Q24H IVPB 08/13/24 18:30 08/23/24 18:29 08/15/24 17:00 1 GM Doxycycline Hyclate 250 ml @ 125 mls/hr Q12H IV 08/13/24 08:00 08/23/24 07:59 08/16/24 09:40 125 MLS/HR Enoxaparin Sodium (Lovenox) 40 mg DAILY SQ 08/13/24 09:00 09/12/24 08:59 08/16/24 09:41 40 MG Famotidine (Pepcid 20mg Tab) 20 mg DAILY PO 08/13/24 09:00 08/13/24 11:20 DC 08/13/24 10:51 20 MG Guaifenesin (RobiTUSSin SUGAR-FREE 100 MG/ 5 ML UDCUP) 400 mg Q4H PRN PO cough 08/12/24 21:30 09/11/24 21:29 08/14/24 09:13 400 MG Hydralazine HCl (APRESOLine 20MG INJ) 5 mg Q6H PRN IV For:SBP above 160;DBP above 90 08/13/24 15:30 09/12/24 15:29 Hydralazine HCl (APRESOLine 20MG INJ) 10 mg Q6H PRN IV For:SBP above 160;DBP above 90 08/12/24 21:30 08/13/24 11:12 DC Insulin Human Regular (humuLIN R 100 UNIT/ML 3ML) INSULIN SLIDING SCAL... ACHS SQ 08/13/24 07:30 09/12/24 07:29 08/15/24 13:20 2 UNIT Losartan Potassium (CozAAR 50 mg TAB) 50 mg DAILY PO 08/14/24 09:00 09/13/24 08:59 08/16/24 09:41 50 MG Magnesium Sulfate 50 ml @ 0 mls/hr PROTOCOL PRN IV H 08/12/24 21:30 08/13/24 11:30 DC 08/13/24 01:15 25 MLS/HR Magnesium Sulfate 50 ml @ 0 mls/hr PROTOCOL PRN IV hypomagnesemia 08/13/24 11:30 08/13/24 11:31 DC Magnesium Sulfate 50 ml @ 0 mls/hr PROTOCOL PRN IV hypomagnesemia 08/13/24 11:30 09/12/24 11:29 Montelukast Sodium (SinguLAIR) 10 mg HS PO 08/13/24 21:00 09/12/24 20:59 08/15/24 21:00 10 MG Morphine Sulfate (morPHINE 2MG SYG) 2 mg Q4H PRN IVP SEVERE PAIN (7-10) 08/12/24 21:30 08/19/24 21:29 Ondansetron HCl (zoFRAN 4MG INJ) 4 mg Q6H PRN IV NAUSEA/VOMITING 08/12/24 21:30 09/11/24 21:29 Pantoprazole Sodium (PROTonix 40MG TAB) 40 mg DAILY PO 08/14/24 09:00 09/13/24 08:59 08/16/24 09:41 40 MG Potassium Chloride 100 ml @ 100 mls/hr AD PRN IV POTASSIUM PROTOCOL 08/12/24 21:30 09/11/24 21:29 Potassium Chloride (K-Dur/Klor-Con 20meq) 20 meq AD PRN PO POTASSIUM PROTOCOL 08/12/24 21:30 09/11/24 21:29 08/14/24 09:04 20 MEQ Potassium Chloride (KCl 10% Elixir 20meq/15ml) 20 meq AD PRN PO POTASSIUM PROTOCOL 08/12/24 21:30 09/11/24 21:29 08/13/24 10:53 20 MEQ Vancomycin HCl 250 ml @ 125 mls/hr Q12H IV 08/15/24 06:30 08/25/24 06:29 08/16/24 06:24 125 MLS/HR Vancomycin HCl 250 ml @ 125 mls/hr Q12H IV 08/14/24 06:00 08/15/24 06:18 DC 08/15/24 06:00 125 MLS/HR Vancomycin HCl (Vancomycin Protocol) 1 each AD IV 08/13/24 15:30 08/27/24 15:29 DIAGNOSTICS / RADIOLOGY: [ ] ASSESSMENT: Pneumonia, POA Gram positive bacteremia, MRSA UTI, MRSA Uncontrolled Diabetes mellitius type2, last A1C 6.1 POA Hypokalemia, POA Hypomagnesemia, POA Leukocytosis, POA Asthma Hyperlipidemia PLAN: Continue Vancomycin and ceftriaxone Continue atorvastatin 20mg HS Continue Losartan 50mg q24h Continue doxycycline Continue sliding scale Pulmonology recommending 7 days antibiotics before repeating CT Chest Will order CT abdomen/pelvis to assess for primary malignancy Echo ordered to assess for endocarditis Infectious disease consulted for antibiotics stewardship Disposition: Pending antibiotics, ct abdomen/pelvis, repeat CT chest, ID recommendations PAUL SENA MD Aug 16, 2024 13:00
--- NOTE | 2024-08-16 16:15 | PN ---
INFECTIOUS DISEASE PROGRESS NOTE Date of Service: Aug 16, 2024 SUBJECTIVE: This is a 64-year-old female patient with past medical history of asthma or was admitted to the hospital for chief complaint of worsening cough. A chest x-ray done on admission showed large right lung infiltrates. A CT of the chest showed Bilateral consolidative infiltrates with pathologic size mediastinal lymphadenopathy. Patient was seen and examined at bedside in room 430. Patient is awake, alert and oriented x 3. Patient continues on oxygen via nasal cannula. Patient is afebrile, temperature is 98.2. Patient with an methicillin-resistant Staphylococcus aureus infection. The 2D echo was negative for vegetation. No growth reported on the repeat blood cultures results in 24 hours. Patient's temperature is 99.3 and the WBC continues to trend down and is 12.1 today. Continues on vancomycin, ceftriaxone and doxycycline IV. Patient will need 2 weeks of IV antibiotics. We will have case management evaluate for arrangement. We will continue to follow patient's care. PHYSICAL EXAM EYES: Anicteric. Pupils equal and reactive. HENT: No oral thrush seen, moist Oral mucosa. NECK: Supple, no JVD or thyromegaly. RESPIRATORY: Good air entry. Wheezing/crackles. Oxygen support. CARDIOVASCULAR: S1, S2 regular. No murmur heard. ABDOMEN: Soft, non tender, bowel sounds present, no organomegaly. CENTRAL NERVOUS SYSTEM: Awake, alert, oriented x 3. SKIN: No rashes, no swelling. LYMPHATICS: No peripheral lymphadenopathy. MUSCULOSKELETAL: No joint swelling, erythema or tenderness. EXTREMITIES: No cyanosis or clubbing. BACK: No deformity, no pressure ulcer. GENITOURINARY: No dysuria or hematuria. Vital Sign (Last 12 Hours) 08/16/24 08/16/24 08/16/24 08/16/24 06:48 06:59 07:59 08:00 Temp 99.7 Pulse 97 98 104 Resp 18 18 20 B/P (MAP) 127/68 Pulse Ox 95 95 O2 Delivery N/A Room Air Room Air Room Air* O2 Flow Rate 0 FiO2 21 21 08/16/24 08/16/24 11:17 11:18 Temp 98.2 Pulse 101 101 Resp 19 18 B/P (MAP) 129/66 Pulse Ox 96 O2 Delivery Room Air LABS: Laboratory: Test 08/16/24 11:45 08/16/24 05:43 08/16/24 04:51 08/15/24 05:10 Range/Units Whole Blood Glucose 239 #H 70-110 MG/DL Blood Gas Specimen Type Arterial Arterial Blood pH 7.534 H 7.350-7.450 Arterial Blood Partial Pressure CO2 28 L 32-45 mmHg Arterial Blood Partial Pressure O2 58.9 L 83.0-108.0 mmHg Arterial Blood HCO3 22.8 21.0-28.0 mmol/L Arterial Blood Oxygen Saturation 93.6 L 94.0-98.0 % Arterial Blood Base Excess 1.5 -2.0-3.0 mmol/L Blood Gas Temperature 37.0 35.5-37.0 CELSIUS Blood Gas Vent Mode RA ROOM AIR FiO2 21.0 % Blood Gas Specimen Comment RR,RN White Blood Count 12.1 H 4.8-10.8 K/uL Red Blood Count 3.64 L 4.00-5.50 MIL/uL Hemoglobin 10.9 L 12.0-16.0 g/dL Hematocrit 32.2 L 36-48 % Mean Corpuscular Volume 88.5 79-99 fL Mean Corpuscular Hemoglobin 29.9 27.0-33.0 pg Mean Corpuscular Hemoglobin Concent 33.9 32.0-36.0 g/dL Red Cell Distribution Width 12.8 11.0-15.5 % Platelet Count 244 130-400 K/uL Mean Platelet Volume 10.2 7.5-10.5 fL Immature Granulocyte % (Auto) 2.0 H 0-1 % Neutrophils (%) (Auto) 79.7 H 40.0-77.0 % Lymphocytes (%) (Auto) 7.1 L 21.0-51.0 % Monocytes (%) (Auto) 9.4 3.0-13.0 % Eosinophils (%) (Auto) 1.6 0.0-8.0 % Basophils (%) (Auto) 0.2 0.0-5.0 % Neutrophils # (Auto) 9.7 H 1.8-7.7 K/uL Lymphocytes # (Auto) 0.9 L 1.0-4.8 K/uL Monocytes # (Auto) 1.1 H 0.1-1.0 K/uL Eosinophils # (Auto) 0.20 0.00-0.70 K/uL Basophils # (Auto) 0.02 0.00-0.20 K/uL Absolute Immature Granulocyte (auto 0.24 0-1 K/uL Nucleated Red Blood Cells 0.0 0.0-0.19 % Sodium Level 137 136-145 mmol/L Potassium Level 3.3 L 3.5-5.1 mmol/L Chloride Level 102 101-111 mmol/L Carbon Dioxide Level 27 21-32 mmol/L Blood Urea Nitrogen 8 7-18 mg/dL Creatinine 0.8 0.5-1.0 mg/dL Glomerular Filtration Rate Calc 83 >90 mL/min Random Glucose 125 H 70-105 mg/dL Total Calcium 8.4 L 8.5-10.1 mg/dL Phosphorus Level 2.2 L 2.5-4.9 mg/dL Magnesium Level 1.80 1.80-2.40 mg/dL Vancomycin Level Trough 9.4 L 10.0-20.0 UG/ML ASSESSMENT: Methicillin-resistant Staphylococcus aureus bacteremia. Pneumonia with methicillin-resistant Staphylococcus aureus. Leukocytosis. History of asthma. Diabetes mellitus. Hypertension. PLAN: Continue vancomycin per pharmacy protocol. Continue ceftriaxone. Continue doxycycline. Continue GI prophylaxis. Continue bronchodilators. Continue oxygen support. We will follow up on the repeat blood cultures. We will monitor electrolytes. Case management evaluation, to arrange for 2 weeks of IV antibiotic. This case was reviewed and discussed with my supervising physician and the above assessment and plan was formulated and agreed upon. ATTESTATION BY PHYSICIAN I have seen and examined the patient. I reviewed the documentation, medical decision making, and treatment plan as noted by the mid-level provider above. I agree with the findings and plan of care. KAYLIE ALDRICH MD, MIRTA L SALES SUPPORT COORDINATOR Aug 16, 2024 16:15
--- NOTE | 2024-08-16 17:06 | NUR ---
CM NOTE: POC CM REACHED OUT TO DR ALDRICH RE: ABX IV RECS. PER DR ALDRICH CONT VANCO 1.25GM Q12HRS X 2 WEEKS. PT PENDING MIDLINE/PICC PLACEMENT. SHANT COLEMAN DIRECTOR MADE AWARE. WILL INFORM ADMIN NEED [facility] APPROVAL FOR IV ABX, [facility] VS ED TO ADMINISTER AND DO VANCO TROUGH. PRIMARY NURSE VEENS MADE AWARE. CM TO CONTINUE TO FOLLOW UP.
[2024-08-16 18:05] LABS: PROTHROMBIN TIME 11.2 SEC (9.6-11.6)
[2024-08-17] VITALS (9 sets, daily range): BP systolic 109–129; BP diastolic 52–74; PULSE 91–101; RESP 16–20; TEMP 97.8–99.4; O2SAT 91–93
[2024-08-17 04:53] LABS: BASOPHILS # (AUTO) 0.02 K/uL (0.00-0.20); BASOPHILS % (AUTO) 0.2 % (0.0-5.0); EOSINOPHILS # (AUTO) 0.22 K/uL (0.00-0.70); EOSINOPHILS % (AUTO) 1.9 % (0.0-8.0); HEMATOCRIT 29.5 % (36-48); IMMATURE GRANULOCYTE ABSOLUTE 0.24 K/uL (0-1); LYMPHOCYTES # (AUTO) 0.9 K/uL (1.0-4.8); LYMPHOCYTES % (AUTO) 7.3 % (21.0-51.0); MEAN CORPUSCULAR HEMOGLOBIN 30.6 pg (27.0-33.0); MEAN CORPUSCULAR HGB CONC 34.2 g/dL (32.0-36.0); MEAN CORPUSCULAR VOLUME 89.4 fL (79-99); MONOCYTES # (AUTO) 0.9 K/uL (0.1-1.0); MONOCYTES % (AUTO) 7.5 % (3.0-13.0); NEUTROPHILS # (AUTO) 9.6 K/uL (1.8-7.7); NEUTROPHILS % (AUTO) 81.1 % (40.0-77.0); PLATELET COUNT (AUTO) 275 K/uL (130-400); RED CELL DISTRIBUTION WIDTH 12.9 % (11.0-15.5); WHITE BLOOD COUNT (AUTO) 11.8 K/uL (4.8-10.8)
[2024-08-17 05:26] LABS: CREATININE 0.7 mg/dL (0.5-1.0); POTASSIUM 3.1 mmol/L (3.5-5.1)
--- NOTE | 2024-08-17 11:15 | PN ---
[facility] PROGRESS NOTE Date Patient Seen: Aug 17, 2024 Time of Visit: 11:01 Supervising Physician: Sona Primary Care Physician: [Dr. Avalos] Outpatient Specialists: [ ] Inpatient Consults: [BIS] PROBLEM LIST: Sepsis without septic shock secondary to MRSA pneumonia, POA MRSA bacteremia, 2/2 pending repeat blood culture MRSA pneumonia, POA Acute hypoxemic respiratory failure, POA, improved Uncontrolled Diabetes mellitius type2 Hypokalemia, POA Hypomagnesemia, POA Asthma Hyperlipidemia Plan Summary: Supplemental oxygen as needed Continue antibiotics per Infectious Disease Repeat blood cultures x2 and follow results Follow Legionella and mycoplasma studies Continue Nebulizer treatments as needed Recommend treating the underlying pneumonia and repeating CT in 7-10 days for reevaluation Further management per primary Recommend SNF placement for long-term antibiotic treatment Dispo: As per attending INTERVAL HISTORY: [Patient is evaluated at bedside. She continues with productive cough. No current respiratory distress on room air. Her ABG showed mild respiratory alkalosis and patient was placed on nasal cannula 2 L NC for comfort. WBC downtrended to 17. Legionella and mycoplasma labs pending. Gram positive 2/2 in the blood, ID consulted.] 08/15 patient is evaluated at bedside. She is resting comfortably in bed. She is currently on 2 L NC, saturating well. Her blood cultures positive for MRSA, sputum culture also positive for MRSA. Continues on vancomycin, cefepime and doxycycline. She is pending repeat blood cultures and an echocardiogram to rule out endocarditis. Her WBC remains elevated, we will continue to monitor labs and response to treatment. 08/16 - patient is seen and evaluated at the bedside. Patient is sitting up in a chair accompanied by her . Patient does not appear to be in any acute distress at this time. Patient is currently on room air and denies dyspnea. Patient denies chest discomfort or chest pain. No acute changes reported overnight. Patient continues on IV antibiotics as per Infectious Disease for MRSA pneumonia as well as bacteremia. Patient had a 2D echo and results shows normal LVEF of 65-70%. No signs of valvular vegetation noted. Recommend SNF placement for continued IV antibiotics. 08/17 - patient is seen sitting up in chair accompanied by her . Patient with no signs of acute distress. Patient remains on room air and denies dyspnea with exertion. No acute changes reported overnight. Patient continues on IV antibiotics as per Infectious Disease. We are currently pending repeat CT scan of the chest. Patient is currently pending midline PICC placement that she will require minimum of 2 weeks IV antibiotics as outpatient. We will continue to follow up. REVIEW OF SYSTEMS: 12 point ROS reviewed with patient. Pertinent positives mentioned above. Otherwise negative. PHYSICAL EXAM: GENERAL: alert, weak, awake oriented x 3 HEENT: EOMI, Sclera non icteric, moist mucosa NECK: Supple, no JVD, trachea midline LUNGS: Clear breath sounds bilaterally. No wheezes HEART: Regular rate and rhythm. Normal S1 and S2, without murmurs ABD: Abdomen soft, nontender. Bowel sounds present EXT: No clubbing cyanosis or edema NEURO: Alert and oriented to person, follows commands Vital Signs (last 8hr) Date Time Temp Pulse Resp B/P (MAP) Pulse Ox O2 Delivery O2 Flow Rate FiO2 08/17/24 09:15 91 Room Air* 0 21 08/17/24 08:00 98.4 92 19 119/63 90 Room Air 0.0 08/17/24 06:54 91 18 N/A Room Air 21 08/17/24 06:52 91 18 08/17/24 04:00 99.3 101 20 113/56 93 Room Air LABS: Hematology Labs: Test 08/17/24 04:30 Range/Units White Blood Count 11.8 H 4.8-10.8 K/uL Red Blood Count 3.30 L 4.00-5.50 MIL/uL Hemoglobin 10.1 L 12.0-16.0 g/dL Hematocrit 29.5 L 36-48 % Mean Corpuscular Volume 89.4 79-99 fL Mean Corpuscular Hemoglobin 30.6 27.0-33.0 pg Mean Corpuscular Hemoglobin Concent 34.2 32.0-36.0 g/dL Red Cell Distribution Width 12.9 11.0-15.5 % Platelet Count 275 130-400 K/uL Mean Platelet Volume 10.2 7.5-10.5 fL Immature Granulocyte % (Auto) 2.0 H 0-1 % Neutrophils (%) (Auto) 81.1 H 40.0-77.0 % Lymphocytes (%) (Auto) 7.3 L 21.0-51.0 % Monocytes (%) (Auto) 7.5 3.0-13.0 % Eosinophils (%) (Auto) 1.9 0.0-8.0 % Basophils (%) (Auto) 0.2 0.0-5.0 % Neutrophils # (Auto) 9.6 H 1.8-7.7 K/uL Lymphocytes # (Auto) 0.9 L 1.0-4.8 K/uL Monocytes # (Auto) 0.9 0.1-1.0 K/uL Eosinophils # (Auto) 0.22 0.00-0.70 K/uL Basophils # (Auto) 0.02 0.00-0.20 K/uL Absolute Immature Granulocyte (auto 0.24 0-1 K/uL Nucleated Red Blood Cells 0.0 0.0-0.19 % Chemistry Labs: Test 08/17/24 05:40 08/17/24 04:30 Range/Units Whole Blood Glucose 125 H 70-110 MG/DL Sodium Level 137 136-145 mmol/L Potassium Level 3.1 L 3.5-5.1 mmol/L Chloride Level 103 101-111 mmol/L Carbon Dioxide Level 25 21-32 mmol/L Blood Urea Nitrogen 9 7-18 mg/dL Creatinine 0.7 0.5-1.0 mg/dL Glomerular Filtration Rate Calc 97 >90 mL/min Random Glucose 134 H 70-105 mg/dL Total Calcium 8.1 L 8.5-10.1 mg/dL Procalcitonin 0.32 0.05-0.5 ng/mL Coagulation Labs: Test 08/16/24 17:38 Range/Units Prothrombin Time 11.2 9.6-11.6 SEC Prothromb Time International Ratio 1.00 0.85-1.15 DIAGNOSTICS / RADIOLOGY RESULTS: [ ] PLAN NEURO: Minimize central acting medications as possible. Maintain fall precautions, adequate lighting during the day PULMONARY: Supplemental 02 as needed. Maintain aspiration precautions at all times CARDIOVASCULAR: Follow hemodynamics. Vital signs per facility protocol GI & NUTRITION: Continue with nutritional support. Continue stool softeners and laxatives as needed. KIDNEYS & ELECTROLYTES: Strict monitoring of intake, output and overall fluid balance. Avoid nephrotoxic medications to the extent possible. Medications to be dosed according to renal function. Monitor electrolytes and replace as needed ENDOCRINE: Maintain blood glucose between 100-180 at all times. Hypoglycemia protocol in place INFECTIOUS DISEASE: Trend temperature, WBC and procalcitonin level Follow cultures, deescalate antibiotics as soon as possible. Panculture if new onset fever ONCOLOGY/HEMATOLOGY/COAGULATION: Monitor for s/s of bleeding Monitor hemoglobin, coagulation studies as needed SKIN: Pressure ulcer prevention per facility protocol Specialty mattress ORTHO/REHAB: Continue PT/OT Prophylaxis: Continue GI and DVT prophylaxis Code Status: Full Resuscitation Disposition: As per attending Other: Total patient care time exceeds 35 minutes excluding all procedures. ATTESTATION BY PHYSICIAN I attest that I reviewed and discussed the case with the Physician Tractor Trailer Mechanic as well as agree with the Physician Tractor Trailer Mechanic's findings, plans of care, and documentation above. Haseeb Odom MD,TERESA N SOFT SUGAR SUPERVISOR Aug 17, 2024 11:15
--- NOTE | 2024-08-17 11:22 | HMCIMG ---
CT CHEST W/O CONTRAST HISTORY: Pulmonary consolidation COMPARISON: None TECHNIQUE: Multiple sequential axial images of the chest were obtained from the thoracic inlet through upper abdomen. Patient was not given contrast through intravenous route. FINDINGS: There is right lung volume loss. Right lung pulmonary infiltrates with bronchiectasis changes are seen. COPD changes are seen. There is left lower lobe pleural-based mass measuring 8.1 x 2.4 cm slightly increase in size from previous study also present on previous study. Left lingular pulmonary infiltrates are also seen.. Small right pleural effusion is seen. There is no evidence of pneumothorax. There are pretracheal and prevascular lymph node measuring 18 mm and precarinal lymph node measuring 15 mm. The heart is not enlarged. Degenerative changes of the thoracolumbar spine are present. There is no evidence of adrenal nodule. IMPRESSION: 1. Small right pleural effusion. COPD changes with interstitial fibrosis. Left pleural-based soft tissue density also seen on previous study. Mild bilateral pulmonary infiltrates. CT was performed with one or more following dose reduction techniques: automated exposure control, adjustment of the mA and kv according to patient's size, or use of a iterative reconstruction technique.
--- NOTE | 2024-08-17 15:12 | NUR ---
CM NOTE: AMANDA IV ABX CM SPOKE TO PEP THIS MORNING, MORE LIKELY PT WILL HAVE TO GO TO [facility] FOR AM DOSE IV ABX AT 8:30AM THEN ED FOR THE EVENING DOSE 8PM. PENDING APPROVAL CONFIRMATION. PT PENDING MIDLINE PLACEMENT. PRIMARY NURSE FATEMEH DICKERSON. CM TO CONTINUE TO FOLLOW UP.
--- NOTE | 2024-08-17 16:14 | PN ---
INFECTIOUS DISEASE PROGRESS NOTE Date of Service: Aug 17, 2024 SUBJECTIVE: This is a 64-year-old female patient with past medical history of asthma or was admitted to the hospital for chief complaint of worsening cough. A chest x-ray done on admission showed large right lung infiltrates. A CT of the chest showed Bilateral consolidative infiltrates with pathologic size mediastinal lymphadenopathy. Patient was seen and examined at bedside in room 430. Patient is awake, alert and oriented x 3. Patient will need 2 weeks of IV antibiotics with vancomycin. Case management working on [facility] approval versus [facility] emergency department or the wound care Center to administer the IV antibiotic. No growth reported on the repeat blood cultures results in 48 hours. No reports of fever, temperature is 98.1 and the WBC has trended down to 11.8. Continues on vancomycin, ceftriaxone and doxycycline IV. We will continue to follow patient's care. PHYSICAL EXAM EYES: Anicteric. Pupils equal and reactive. HENT: No oral thrush seen, moist Oral mucosa. NECK: Supple, no JVD or thyromegaly. RESPIRATORY: Good air entry. Wheezing/crackles. Oxygen support. CARDIOVASCULAR: S1, S2 regular. No murmur heard. ABDOMEN: Soft, non tender, bowel sounds present, no organomegaly. CENTRAL NERVOUS SYSTEM: Awake, alert, oriented x 3. SKIN: No rashes, no swelling. LYMPHATICS: No peripheral lymphadenopathy. MUSCULOSKELETAL: No joint swelling, erythema or tenderness. EXTREMITIES: No cyanosis or clubbing. BACK: No deformity, no pressure ulcer. GENITOURINARY: No dysuria or hematuria. Vital Sign (Last 12 Hours) 08/17/24 08/17/24 08/17/24 08/17/24 06:52 06:54 08:00 09:15 Temp 98.4 Pulse 91 91 92 Resp 18 18 19 B/P (MAP) 119/63 Pulse Ox 90 91 O2 Delivery N/A Room Air Room Air Room Air* O2 Flow Rate 0.0 0 FiO2 21 21 08/17/24 08/17/24 11:21 12:00 Temp 98.1 Pulse 95 99 Resp 18 16 B/P (MAP) 109/52 Pulse Ox 91 O2 Delivery Room Air O2 Flow Rate 0.0 Intake & Output (last 24hrs) 08/16/24 08/16/24 08/17/24 15:00 23:00 07:00 Intake Total 600 ml 1250 ml 900 ml Balance 600 ml 1250 ml 900 ml LABS: Laboratory: Test 08/17/24 15:36 08/17/24 04:30 08/16/24 17:38 08/16/24 16:45 Range/Units Whole Blood Glucose 155 H 70-110 MG/DL White Blood Count 11.8 H 4.8-10.8 K/uL Red Blood Count 3.30 L 4.00-5.50 MIL/uL Hemoglobin 10.1 L 12.0-16.0 g/dL Hematocrit 29.5 L 36-48 % Mean Corpuscular Volume 89.4 79-99 fL Mean Corpuscular Hemoglobin 30.6 27.0-33.0 pg Mean Corpuscular Hemoglobin Concent 34.2 32.0-36.0 g/dL Red Cell Distribution Width 12.9 11.0-15.5 % Platelet Count 275 130-400 K/uL Mean Platelet Volume 10.2 7.5-10.5 fL Immature Granulocyte % (Auto) 2.0 H 0-1 % Neutrophils (%) (Auto) 81.1 H 40.0-77.0 % Lymphocytes (%) (Auto) 7.3 L 21.0-51.0 % Monocytes (%) (Auto) 7.5 3.0-13.0 % Eosinophils (%) (Auto) 1.9 0.0-8.0 % Basophils (%) (Auto) 0.2 0.0-5.0 % Neutrophils # (Auto) 9.6 H 1.8-7.7 K/uL Lymphocytes # (Auto) 0.9 L 1.0-4.8 K/uL Monocytes # (Auto) 0.9 0.1-1.0 K/uL Eosinophils # (Auto) 0.22 0.00-0.70 K/uL Basophils # (Auto) 0.02 0.00-0.20 K/uL Absolute Immature Granulocyte (auto 0.24 0-1 K/uL Nucleated Red Blood Cells 0.0 0.0-0.19 % Sodium Level 137 136-145 mmol/L Potassium Level 3.1 L 3.5-5.1 mmol/L Chloride Level 103 101-111 mmol/L Carbon Dioxide Level 25 21-32 mmol/L Blood Urea Nitrogen 9 7-18 mg/dL Creatinine 0.7 0.5-1.0 mg/dL Glomerular Filtration Rate Calc 97 >90 mL/min Random Glucose 134 H 70-105 mg/dL Total Calcium 8.1 L 8.5-10.1 mg/dL Procalcitonin 0.32 0.05-0.5 ng/mL Prothrombin Time 11.2 9.6-11.6 SEC Prothromb Time International Ratio 1.00 0.85-1.15 Vancomycin Level Trough 12.6 # 10.0-20.0 UG/ML Test 08/16/24 05:43 Range/Units Blood Gas Specimen Type Arterial Arterial Blood pH 7.534 H 7.350-7.450 Arterial Blood Partial Pressure CO2 28 L 32-45 mmHg Arterial Blood Partial Pressure O2 58.9 L 83.0-108.0 mmHg Arterial Blood HCO3 22.8 21.0-28.0 mmol/L Arterial Blood Oxygen Saturation 93.6 L 94.0-98.0 % Arterial Blood Base Excess 1.5 -2.0-3.0 mmol/L Blood Gas Temperature 37.0 35.5-37.0 CELSIUS Blood Gas Vent Mode RA ROOM AIR FiO2 21.0 % Blood Gas Specimen Comment RR,GEOTECHNICAL ENGINEER: Methicillin-resistant Staphylococcus aureus bacteremia. Pneumonia with methicillin-resistant Staphylococcus aureus. Leukocytosis. History of asthma. Diabetes mellitus. Hypertension. PLAN: Continue vancomycin per pharmacy protocol. Continue ceftriaxone. Continue doxycycline. Continue GI prophylaxis. Continue bronchodilators. Continue oxygen support. We will follow up on the repeat blood cultures. We will monitor electrolytes. Case management arranging for 2 weeks of IV antibiotic. This case was reviewed and discussed with my supervising physician and the above assessment and plan was formulated and agreed upon. ATTESTATION BY PHYSICIAN I have seen and examined the patient. I reviewed the documentation, medical decision making, and treatment plan as noted by the mid-level provider above. I agree with the findings and plan of care. KAYLIE ALDRICH MD, [facility] Aug 17, 2024 16:13
[2024-08-17] MEDS: LINEZOLID 600 MG/ISO-OSM 300 ML IV SCH (16:31)
--- NOTE | 2024-08-17 19:15 | NUR ---
DISCHARGE PATIENT HAS BEEN DISCHARGED HOME AND IS TO BE ON 2 WEEKS OF ZYVOX BID. PIV REMOVED, PRESSURE GAUZE AND TAPE APPLIED TO SITE. PATIENT IS GOING WITH MIDLINE TO RIGHT UPPER ARM, DOUBLE LUMEN. PATIENT IS TO GO FOR ANTIBIOTICS [facility], I SPOKE WITH RICARDO, AND VERIFIED APPOINTMENT FOR 08/18/24. SPOKE WITH HEEL COVER SPLITTER, STATED THEY SPOKE WITH DR ALDRICH TO CHANGE ANTIBIOTIC TO ZYVOX. PATIENT IS TO RECEIVE AM DOSE OF ZYVOX AT [facility] AND PM DOSE IN ER. PATIENT AND AT BEDSIDE VERBALIZE UNDERSTANDING OF DISCHARGE INSTRUCTIONS.
== END 2024-08-17 19:50 | disposition home or self-care (01) | DRG 871 ==
LOC: EDH 17:36 → EDHIP 17:37 → 4AH 08-13 01:35
PROVIDERS: ADMIT Internal Medicine; ATTEND Internal Medicine
DX: A41.02 Sepsis due to Methicillin resistant Staphylococcus aureus (principal); J15.211 Pneumonia due to Methicillin susceptible Staphylococcus aureus; J15.212 Pneumonia due to Methicillin resistant Staphylococcus aureus; J96.01 Acute respiratory failure with hypoxia; N39.0 Urinary tract infection, site not specified; E11.65 Type 2 diabetes mellitus with hyperglycemia; I10 Essential (primary) hypertension; Z20.822 Contact with and (suspected) exposure to COVID-19; G30.9 Alzheimer's disease, unspecified; F02.80 Dementia in other diseases classified elsewhere, unspecified severity, without behavioral disturbance, psychotic disturbance, mood disturbance, and anxiety; E78.00 Pure hypercholesterolemia, unspecified; E87.6 Hypokalemia; E83.42 Hypomagnesemia; J45.909 Unspecified asthma, uncomplicated; Z90.710 Acquired absence of both cervix and uterus; Z83.3 Family history of diabetes mellitus; Z51.5 Encounter for palliative care; Z59.71 Insufficient health insurance coverage; Z79.899 Other long term (current) drug therapy
CPT/HCPCS: 36415; 36600; 71045; 71250; 71260; 74176; 80048; 80053; 80202; 81001; 82550; 82803; 82948; 83036; 83540; 83550; 83605; 83735; 83880; 84100; 84145; 84484; 85025; 85027; 85610; 86038; 86215; 86235; 86701; 86704; 86803; 87040; 87071; 87086; 87186; 87205; 87390; 87449; 87635; 87804; 87880; 93005; 93306; 93356; 94640; 94664; 96365; 96366; 96375; 99285; G0378; J0456; J0696; J1650; J1815; J2020; J3370; J3475; J3490; Q9967; 3370